=== PATIENT | female | born 1970 | race Caucasian/White ===

== ENCOUNTER 2020-09-26 08:37 | Outpatient (REF) | payer BC, SELFPAY | END 2020-09-26 08:38 | disposition home or self-care (01) | LOC: HO.LAB 08:37 | PROVIDERS: Visit Provider Internal Medicine | DX: Z20.828 Contact with and (suspected) exposure to other viral communicable diseases (principal) | CPT/HCPCS: C9803; U0003 ==

== ENCOUNTER 2020-10-10 09:01 | Outpatient (REF) | payer BC, SELFPAY | END 2020-10-10 09:02 | disposition home or self-care (01) | LOC: HO.LAB 09:01 | PROVIDERS: PCP Internal Medicine; Visit Provider Internal Medicine | DX: Z20.828 Contact with and (suspected) exposure to other viral communicable diseases (principal) | CPT/HCPCS: C9803; U0003 ==

== ENCOUNTER 2021-12-15 15:15 | Outpatient (REF) | payer OTHER, SELFPAY ==
[2021-12-15 16:34] LABS: MANUAL DIFF FLAG NO
[2021-12-15 17:04] LABS: Basophils Absolute Auto 0.1 X10*3/uL (0.0-0.2); Basophils Percent Auto 0.8 % (0-2); Eosinophils Absolute Auto 0.3 X10*3/uL (0.0-0.4); Eosinophils Percent Auto 4.1 % (0-4); Hematocrit 40.9 % (37.0-47.0); Hemoglobin 13.7 g/dl (12.0-16.0); Imm Gran Abs Auto 0.01 X10*3/uL (0.00-0.03); Imm Gran Pct Auto 0.2 % (0.0-0.4); Lymphocytes Absolute Auto 1.6 X10*3/uL (1.2-4.9); Lymphocytes Percent Auto 25.8 % (20-40); Mean Corpuscular HGB Conc 33.5 g/dl (31.0-35.0); Mean Corpuscular Volume 95.6 fL (80.0-98.0); Mean Platelet Volume 9.3 fL (9.4-12.3); Monocytes Percent Auto 15.1 % (2-11); Neutrophils Absolute Auto 3.4 x10*3/uL (2.0-8.3); Platelet Count 319 X10*3/uL (160-400); Red Blood Count 4.28 X10*6/uL (4.20-5.50); Red Cell Distribution Width 12.5 % (11.0-16.0); White Blood Count 6.3 X10*3/uL (4.8-10.8)
[2021-12-15 17:25] LABS: Alanine Aminotransferase 36 U/L (0-31); Albumin Level 4.3 g/dL (3.5-5.0); Alkaline Phosphatase 60 U/L (39-117); Anion Gap 13 (12-20); Aspartate Amino Transferase 23 U/L (5-31); Blood Urea Nitrogen 11 mg/dL (9-16); C Reactive Protein 6.96 mg/dL (< or = 0.50); Carbon Dioxide 26 mmol/L (22-29); Chloride 104 mmol/L (96-108); Estimated Glomerular Filt Rate > 60; Glucose Random 105 mg/dL (60-115); Sodium 139 mmol/L (135-145); Total Protein 7.3 g/dL (6.5-8.0)
== END 2021-12-15 15:16 | disposition home or self-care (01) ==
LOC: HO.LAB 15:15
PROVIDERS: PCP Internal Medicine; Referring Provider Internal Medicine; Visit Provider Nurse Practitioner
DX: R19.7 Diarrhea, unspecified (principal); Z86.19 Personal history of other infectious and parasitic diseases
CPT/HCPCS: 36415; 80053; 85025; 86140

== ENCOUNTER 2021-12-16 14:10 | Outpatient (REF) | payer OTHER, SELFPAY ==
[2021-12-17 11:05] LABS: CDiff Gene PCR POSITIVE (Negative)
[2021-12-17 12:13] LABS: CDiff Toxin Positive (Negative)
[2021-12-17 12:39] LABS: CDIFF Internal ctrl Dots and bkg OK (V)
== END 2021-12-16 14:11 | disposition home or self-care (01) ==
LOC: HO.LNP 14:10
PROVIDERS: Visit Provider Nurse Practitioner
DX: R19.7 Diarrhea, unspecified (principal); Z86.19 Personal history of other infectious and parasitic diseases
CPT/HCPCS: 87324; 87493

== ENCOUNTER → 2022-01-01 07:09 | Outpatient (BNVA) | payer OTHER, SELFPAY | PROVIDERS: PCP Internal Medicine; Referring Provider Internal Medicine; Visit Provider Nurse Practitioner ==

== ENCOUNTER → 2022-04-02 07:18 | Outpatient (BNVA) | payer OTHER, SELFPAY | PROVIDERS: PCP Internal Medicine; Referring Provider Internal Medicine; Visit Provider Nurse Practitioner | DX: Z13.89 Encounter for screening for other disorder (principal) ==

== ENCOUNTER 2022-06-22 08:43 | Outpatient (REF) | payer OTHER, SELFPAY ==
[2022-06-22 12:15] LABS: Alanine Aminotransferase 17 U/L (0-31); Aspartate Amino Transferase 21 U/L (5-31); Cholesterol 204 mg/dL; Glucose Fasting 101 mg/dL (60-99); HDL Cholesterol 59 mg/dL; LDL Cholesterol Calculated 121 mg/dl; Triglycerides 122 mg/dL
== END 2022-06-22 08:44 | disposition home or self-care (01) ==
LOC: HO.HMGCLDS 08:43
PROVIDERS: PCP Internal Medicine; Visit Provider Internal Medicine
DX: Z00.01 Encounter for general adult medical examination with abnormal findings (principal)
CPT/HCPCS: 36415; 80061; 82947; 84450; 84460

== ENCOUNTER 2022-12-03 13:51 | Outpatient (REF) | payer OTHER, SELFPAY ==
[2022-12-03 15:36] LABS: C Reactive Protein 0.11 mg/dL (< or = 0.50)
== END 2022-12-03 13:52 | disposition home or self-care (01) ==
LOC: HO.LAB 13:51
PROVIDERS: PCP Internal Medicine; Visit Provider Nurse Practitioner
DX: R19.7 Diarrhea, unspecified (principal); Z86.19 Personal history of other infectious and parasitic diseases
CPT/HCPCS: 36415; 86140

== ENCOUNTER 2022-12-06 10:36 | Outpatient (REF) | payer OTHER, SELFPAY | END 2022-12-06 10:37 | disposition home or self-care (01) | LOC: HO.LNP 10:36 | PROVIDERS: Visit Provider Nurse Practitioner | DX: Z13.89 Encounter for screening for other disorder (principal) | CPT/HCPCS: 87493; 87507 ==

== ENCOUNTER 2022-12-11 10:34 | Outpatient (REF) | payer OTHER, SELFPAY ==
[2022-12-11 14:23] LABS: Adenovirus F 40/41 Not Detected (Not Detect.); Astrovirus Not Detected (Not Detect.); Campylobacter Not Detected (Not Detect.); Cryptosporidium Not Detected (Not Detect.); Cyclospora cayetanensis Not Detected (Not Detect.); E. coli EAEC Not Detected (Not Detect.); E. coli EPEC Not Detected (Not Detect.); E. coli ETEC Not Detected (Not Detect.); E. coli STEC Not Detected (Not Detect.); Entamoeba histolytica Not Detected (Not Detect.); Giardia lamblia Not Detected (Not Detect.); Norovirus GI/GII Not Detected (Not Detect.); Plesiomonas shigelloides Not Detected (Not Detect.); Rotavirus A Not Detected (Not Detect.); Salmonella Not Detected (Not Detect.); Sapovirus Not Detected (Not Detect.); Shigella sp./EIEC Not Detected (Not Detect.); Vibrio Not Detected (Not Detect.); Vibrio Cholerae Not Detected (Not Detect.); Yersinia enterocolitica Not Detected (Not Detect.)
== END 2022-12-11 10:35 | disposition home or self-care (01) ==
LOC: HO.LNP 10:34
PROVIDERS: Visit Provider Nurse Practitioner
DX: R19.7 Diarrhea, unspecified (principal)
CPT/HCPCS: 87507

== ENCOUNTER 2022-12-29 08:37 | Emergency (ER) | payer OTHER, SELFPAY ==
--- NOTE | ~2022-12-29 | CT_ITS ---
EXAMINATION: CT ABDOMEN AND PELVIS WITH CONTRAST CLINICAL INFORMATION: Lower abdominal pain COMPARISON: None TECHNIQUE: Multidetector volumetric images were obtained from the superior aspect of the liver through the pubic symphysis following administration 85 mL of Omnipaque 350 intravenous contrast. Sagittal and coronal reformatted images were obtained on the technologist's workstation. Oral contrast: No This CT examination was performed using dose optimization techniques as appropriate, variously including the following: *Automated exposure control *Adjustment of mA and/or kV according to patient size (this includes techniques or standardized protocols for targeted exams where dose is matched to indication/reason for exam; i.e. extremities or head) *Use of iterative reconstruction technique DLP: 364 mGy-cm FINDINGS: LUNG BASES: 3 mm nodule at the left lung base anterior. Image 1 Another small 3 mm nodule on image 4. 3 mm nodule right base image 6. LIVER, GALLBLADDER, AND BILIARY TREE: The liver is normal in size, shape, and attenuation. No focal hepatic lesion or biliary ductal dilatation is present. The gallbladder is unremarkable with no evidence of radiopaque gallstones, gallbladder wall thickening, or obvious pericholecystic inflammatory changes. PANCREAS: Unremarkable. SPLEEN: Unremarkable. ADRENAL GLANDS: Unremarkable. KIDNEYS AND URETERS: The kidneys are normal in size, shape, and attenuation. No hydronephrosis, hydroureter, or calculi seen. No perinephric stranding. BLADDER: Unremarkable. GASTROINTESTINAL TRACT: The bowel pattern is felt to be nonobstructing. ABDOMINAL WALL: No significant hernia is appreciated. LYMPH NODES: Normal. VASCULAR: Unremarkable. PELVIC VISCERA: Small amount of free fluid in the deep pelvis. IUD associated with the uterus is noted Mild thickening of the bladder wall. OSSEOUS STRUCTURES: Unremarkable. CT/CT abdomen pelvis w IV con IMPRESSION: There is a small amount of free fluid in the deep pelvis of uncertain etiology. The bowel pattern is felt to be nonobstructing. Note is made of several small lower lung nodules. CT of the chest would be recommended. This may be done an outpatient basis. Fleischner guidelines were followed.
[2022-12-29 08:44] VITALS: BP 132/75; PULSE 61; RESP 16; TEMP 37.1; O2SAT 96; BMI 25.0
[2022-12-29 09:20] LABS: MANUAL DIFF FLAG NO
[2022-12-29 09:22] LABS: Basophils Absolute Auto 0.1 X10*3/uL (0.0-0.2); Basophils Percent Auto 1.1 % (0-2); Eosinophils Absolute Auto 0.2 X10*3/uL (0.0-0.4); Eosinophils Percent Auto 2.8 % (0-4); Hematocrit 38.9 % (37.0-47.0); Hemoglobin 13.2 g/dl (12.0-16.0); Imm Gran Abs Auto 0.02 X10*3/uL (0.00-0.03); Imm Gran Pct Auto 0.3 % (0.0-0.4); Lymphocytes Absolute Auto 1.8 X10*3/uL (1.2-4.9); Lymphocytes Percent Auto 28.1 % (20-40); Mean Corpuscular HGB Conc 33.9 g/dl (31.0-35.0); Mean Corpuscular Hemoglobin 31.8 pg (27.0-33.0); Mean Corpuscular Volume 93.7 fL (80.0-98.0); Mean Platelet Volume 8.9 fL (9.4-12.3); Monocytes Absolute Auto 0.7 X10*3/uL (0.1-1.2); Monocytes Percent Auto 11.3 % (2-11); Neutrophils Absolute Auto 3.7 x10*3/uL (2.0-8.3); Neutrophils Percent Auto 56.4 % (45-73); Platelet Count 310 X10*3/uL (160-400); Red Blood Count 4.15 X10*6/uL (4.20-5.50); Red Cell Distribution Width 12.2 % (11.0-16.0); White Blood Count 6.5 X10*3/uL (4.8-10.8)
[2022-12-29 09:44] LABS: Alanine Aminotransferase 25 U/L (0-31); Albumin Level 4.1 g/dL (3.5-5.0); Alkaline Phosphatase 55 U/L (39-117); Anion Gap 12 (12-20); Aspartate Amino Transferase 20 U/L (5-31); Bilirubin Total 1.1 mg/dL (0.0-1.0); Blood Urea Nitrogen 10 mg/dL (9-16); Calcium 9.6 mg/dL (8.4-10.2); Carbon Dioxide 28 mmol/L (22-29); Chloride 105 mmol/L (96-108); Creatinine Clr Calc Pharmacy 61.7; Estimated Glomerular Filt Rate > 60; Glucose Random 102 mg/dL (60-115); Potassium 4.8 mmol/L (3.3-5.1); Sodium 140 mmol/L (135-145); Total Protein 6.9 g/dL (6.5-8.0)
--- NOTE | 2022-12-29 15:59 | ED.GENADULT ---
HPI - General Adult General Chief complaint: General Medical <Kris Green MD - Last Filed: 12/29/22 16:26> Stated complaint: Blood in stool/Syncope <Kris Green MD - Last Filed: 12/29/22 16:26> Time Seen by Provider: 12/29/22 15:05 <Kris Green MD - Last Filed: 12/29/22 16:26> Source: patient <Kris Green MD - Last Filed: 12/29/22 16:26> History of Present Illness HPI narrative: Patient with past history of C diff colitis presents with worsening mucousy stools, low abdominal cramping and now bright red blood mixed in with mucus. She had a syncopal episode yesterday while having a bowel movement. She states this has happened to her before when she has had particularly crampy abdominal pain. No history that she knows of of cardiac dysrhythmia or other cause for her syncope in the past. Denies palpitations or dyspnea. 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 She had another stool panel which was apparently negative at the time. It appears that sample was form so may not have performed all of the C diff testing however. Since that time it has been more loose and mucousy. No fevers or chills. No nausea vomiting. She has so far not had a colonoscopy or CT scan. She is as far she knows not had a workup for inflammatory bowel disease. Her initial bout of C diff colitis was diagnosed with a stool sample after refractory diarrhea. She had never been on antibiotics prior to this however. She had a course of vancomycin with the parents some improvement but never full recovery. <Kris Green MD - Last Filed: 12/29/22 16:26> Related Data Home medications: Home Medications Medication Instructions Recorded Confirmed trazodone 100 mg tablet 100 mg PO BEDTIME 12/03/22 Previous Rx's Medication Instructions Recorded rejagnatjm-gskpdxzbfirlo-wjboenof 1 cap PO . 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 #4 tabs atenolol 50 mg tablet 50 mg PO DAILY #90 tabs 12/20/22 citalopram 20 mg tablet 20 mg PO DAILY #90 tabs 12/20/22 <Kris Green MD - Last Filed: 12/29/22 16:26> Allergies/adverse reactions: Allergies Allergy/AdvReac Type Severity Reaction Status Date / Time codeine [CODEINE] Allergy Unknown RASH Verified 12/29/22 08:44 oxycodone [Percocet] Allergy Unknown rash Verified 12/29/22 08:44 <Kris Green MD - Last Filed: 12/29/22 16:26> Review of Systems Constitutional: Comments: Malaise but no fevers or chills <Kris Green MD - Last Filed: 12/29/22 16:26> Cardiovascular: Comments: No chest pain <Kris Green MD - Last Filed: 12/29/22 16:26> Respiratory: Comments: No cough or dyspnea <Kris Green MD - Last Filed: 12/29/22 16:26> Gastrointestinal: Gastrointestinal: Reports as per HPI <Kris Green MD - Last Filed: 12/29/22 16:26> Musculoskeletal: Musculoskeletal: Reports no additional musculoskeletal complaints <Kris Green MD - Last Filed: 12/29/22 16:26> Integumentary/Breasts: Comments: No rash <Kris Green MD - Last Filed: 12/29/22 16:26> Neurologic: Comments: No focal weakness <Kris Green MD - Last Filed: 12/29/22 16:26> [facility] Past Medical History Medical History: Medical History (Updated 12/29/22 @ 18:47 by Viky Cool MD) Anxiety and depression Colon cancer screening 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 COVID-19 vaccine series declined Essential hypertension History of Clostridioides difficile colitis Impaired fasting glucose Migraine headache Peroneal tendinitis Plantar fasciitis, left <Kris Green MD - Last Filed: 12/29/22 16:26> Family History Family History: Family History Father Substance use disorder Sister Mental health disorder <Kris Green MD - Last Filed: 12/29/22 16:26> Social History Social History: Social History Housing: House Alcohol intake: current Alcohol intake frequency: holidays/special occasions only Alcohol type: beer and wine Patient Tobacco Use Status: Former Tobacco user Years Smoked: 6 yrs Smoked in Last 30 Days: No e-Cigarette/Vaping Use: Never Used Second Hand Smoke Exposure: No Use of substances other than those prescribed or required for medical reasons: Yes Substance Use Type: Marijuana Advance Directives: No Advance Directives Information Provided: No Patient : No service: No Current occupational status: employed Cognitive needs: No Hearing needs: No Vision needs: No <Kris Green MD - Last Filed: 12/29/22 16:26> Physical Exam ED Vital Signs: Vital Signs - 24 hr 12/29/22 08:44 12/29/22 16:51 12/29/22 18:26 Temperature 98.7 F 98.8 F 98.1 F Pulse Rate 61 59 59 Respiratory Rate 16 16 14 Blood Pressure 132/75 142/73 H 152/96 H Pulse Oximetry 96 100 98 Oxygen Delivery Method Room Air Room Air Room Air BMI result Body Mass Index 25.0 <Kris Green MD - Last Filed: 12/29/22 16:26> Vital Signs - 24 hr 12/29/22 08:44 12/29/22 16:51 12/29/22 18:26 Temperature 98.7 F 98.8 F 98.1 F Pulse Rate 61 59 59 Respiratory Rate 16 16 14 Blood Pressure 132/75 142/73 H 152/96 H Pulse Oximetry 96 100 98 Oxygen Delivery Method Room Air Room Air Room Air BMI result Body Mass Index 25.0 <Viky Cool MD - Last Filed: 12/29/22 18:48> Const Other: Awake alert and oriented. No acute distress. Vital signs stable <Kris Green MD - Last Filed: 12/29/22 16:26> Resp Other: Clear and equal bilaterally without wheezes rales or rhonchi <Kris Green MD - Last Filed: 12/29/22 16:26> Cardio Other: Regular rate and rhythm without murmurs rubs or gallops <Kris Green MD - Last Filed: 12/29/22 16:26> GI Other: Soft. Nondistended. Mild tenderness across the low abdomen without guarding rebound <Kris Green MD - Last Filed: 12/29/22 16:26> Skin Other: Warm pink and dry <Kris Green MD - Last Filed: 12/29/22 16:26> Neuro Other: Nonfocal neuro exam <Kris Green MD - Last Filed: 12/29/22 16:26> Medications Administered Discontinued Medications Generic Name Dose Route Start Last Admin Trade Name Freq PRN Reason Stop Dose Admin Acetaminophen 650 mg 12/29/22 15:37 12/29/22 16:38 Acetaminophen 325 Mg Tablet PO 12/29/22 15:38 650 mg ONCE ONE Administration Sodium Chloride 1,000 mls @ 999 mls/hr 12/29/22 15:45 12/29/22 16:39 Ns IV 12/29/22 16:45 999 mls/hr .Q1H1M CRISTOBAL Administration Iohexol 100 ml 12/29/22 16:23 12/29/22 16:24 Iohexol 350 Mg/Ml 100 Ml Infus..Btl IV 12/29/22 16:24 85 ml ONCE ONE Administration <Kris Green MD - Last Filed: 12/29/22 16:26> Medications Administered Discontinued Medications Generic Name Dose Route Start Last Admin Trade Name Freq PRN Reason Stop Dose Admin Acetaminophen 650 mg 12/29/22 15:37 12/29/22 16:38 Acetaminophen 325 Mg Tablet PO 12/29/22 15:38 650 mg ONCE ONE Administration Sodium Chloride 1,000 mls @ 999 mls/hr 12/29/22 15:45 12/29/22 16:39 Ns IV 12/29/22 16:45 999 mls/hr .Q1H1M CRISTOBAL Administration Iohexol 100 ml 12/29/22 16:23 12/29/22 16:24 Iohexol 350 Mg/Ml 100 Ml Infus..Btl IV 12/29/22 16:24 85 ml ONCE ONE Administration <Viky Cool MD - Last Filed: 12/29/22 18:48> Medical Decision Making Medical Decision Making MDM Narrative: Patient with chronic intermittently waxing and waning colitis type picture with mucus and occasional bright red blood. Unclear if this is related to recurrence of C diff or if she has another pathologic process such as inflammatory bowel disease, ulcerative colitis, Crohn's. She also has a history of syncope with a recent episode. These appear and we are always in the setting of crampy abdominal pain and most likely vasovagal. Will act CT scan. Anemia could be contributing Hypokalemia could be contributing White count and hemoglobin are normal. Chemistries are normal. Will order C diff if she can produce a sample. Given above history, will order CT scan to look for inflammatory changes or signs of infectious colitis. <Kris Green MD - Last Filed: 12/29/22 16:26> Patient with chronic intermittently waxing and waning colitis type picture with mucus and occasional bright red blood. Unclear if this is related to recurrence of C diff or if she has another pathologic process such as inflammatory bowel disease, ulcerative colitis, Crohn's. She also has a history of syncope with a recent episode. These appear and we are always in the setting of crampy abdominal pain and most likely vasovagal. Will act CT scan. Anemia could be contributing Hypokalemia could be contributing White count and hemoglobin are normal. Chemistries are normal. Will order C diff if she can produce a sample. Given above history, will order CT scan to look for inflammatory changes or signs of infectious colitis. Took over patient's case at the change of shift. Patient's white count is normal. Hemoglobin is baseline. Electrolytes unremarkable. CT scan of the abdomen pelvis did not show any acute abscess perforation. It did show some pulmonary nodules will do require follow-up on an outpatient basis. These findings were discussed with GI on-call Dr. Burgos. Agreed no additional antibiotic at this time. Close follow-up with GI on an outpatient basis. Patient is in stable condition. <Viky Cool MD - Last Filed: 12/29/22 18:48> Differential Diagnosis Differential Diagnoses: The differential diagnosis associated with the presentation includes <Viky Cool MD - Last Filed: 12/29/22 18:48> Colitis, C diff, inflammatory bowel disease, irritable bowel disease, pulmonary nodules <Viky Cool MD - Last Filed: 12/29/22 18:48> Admission/Observation Consideration of admission/observation: Escalation of care including admission/observation considered <Viky Cool MD - Last Filed: 12/29/22 18:48> Given patient's well appearance has follow-up with GI will require follow-up on an outpatient basis. Joint decision was made with patient and with GI to discharge patient home <Viky Cool MD - Last Filed: 12/29/22 18:48> Consult Healthcare Provider GI <Viky Cool MD - Last Filed: 12/29/22 18:48> Lab Data MDM Lab Attestation statement: I reviewed the patient's lab results. <Viky Cool MD - Last Filed: 12/29/22 18:48> Result Diagrams: 12/29/22 09:16 12/29/22 09:16 <Kris Green MD - Last Filed: 12/29/22 16:26> Labs: Lab Results 12/29/22 12/29/22 12/29/22 Range/Units 09:16 09:16 16:43 WBC 6.5 (4.8-10.8) X10*3/uL RBC 4.15 L (4.20-5.50) X10*6/uL Hgb 13.2 (12.0-16.0) g/dl Hct 38.9 (37.0-47.0) % MCV 93.7 (80.0-98.0) fL MCH 31.8 (27.0-33.0) pg MCHC 33.9 (31.0-35.0) g/dl RDW 12.2 (11.0-16.0) % Plt Count 310 (160-400) X10*3/uL MPV 8.9 L (9.4-12.3) fL Immature Gran % (Auto) 0.3 (0.0-0.4) % Neut % (Auto) 56.4 (45-73) % Lymph % (Auto) 28.1 (20-40) % Archer % (Auto) 11.3 H (2-11) % Eos % (Auto) 2.8 (0-4) % Baso % (Auto) 1.1 (0-2) % Lymph # (Auto) 1.8 (1.2-4.9) X10*3/uL Archer # (Auto) 0.7 (0.1-1.2) X10*3/uL Eos # (Auto) 0.2 (0.0-0.4) X10*3/uL Baso # (Auto) 0.1 (0.0-0.2) X10*3/uL Abs Immat Gran (auto) 0.02 (0.00-0.03) X10*3/uL Absolute Neuts (auto) 3.7 (2.0-8.3) x10*3/uL Absolute Nucleated RBC 0.000 (0.0-0.012) X10*3/uL Nucleated RBC % (auto) 0.0 (0.0-0.2) /100WBC Sodium 140 (135-145) mmol/L Potassium 4.8 (3.3-5.1) mmol/L Chloride 105 (96-108) mmol/L Carbon Dioxide 28 (22-29) mmol/L Anion Gap 12 (12-20) BUN 10 (9-16) mg/dL Creatinine 0.85 (0.5-1.4) mg/dL Estim Creat Clear Calc 61.7 Estimated GFR > 60 Random Glucose 102 (60-115) mg/dL Calcium 9.6 (8.4-10.2) mg/dL Total Bilirubin 1.1 H (0.0-1.0) mg/dL AST 20 (5-31) U/L ALT 25 (0-31) U/L Alkaline Phosphatase 55 (39-117) U/L Total Protein 6.9 (6.5-8.0) g/dL Albumin 4.1 (3.5-5.0) g/dL Urine Color Yellow Urine Appearance Clear Urine pH 6.0 (5.0-9.0) Ur Specific [place] 1.010 (1.005-1.025) Urine Protein Negative (Neg-Trace) mg/dL Urine Glucose (UA) Negative (Negative) mg/dL Urine Ketones Trace (Negative) mg/dL Urine Blood Negative (Negative) Urine Nitrite Negative (Negative) Ur Leukocyte Esterase Trace H (Negative) Urine RBC 0-2 (0-2) /HPF Urine WBC 0-5 (0-5) /HPF Ur Squamous Epith Cells 3-5 (0-2) /HPF Urine Bacteria 1+ (None Seen) Hyaline Casts 0-2 (0-2) /LPF <Kris Green MD - Last Filed: 12/29/22 16:26> Lab Results 12/29/22 12/29/22 12/29/22 Range/Units 09:16 09:16 16:43 WBC 6.5 (4.8-10.8) X10*3/uL RBC 4.15 L (4.20-5.50) X10*6/uL Hgb 13.2 (12.0-16.0) g/dl Hct 38.9 (37.0-47.0) % MCV 93.7 (80.0-98.0) fL MCH 31.8 (27.0-33.0) pg MCHC 33.9 (31.0-35.0) g/dl RDW 12.2 (11.0-16.0) % Plt Count 310 (160-400) X10*3/uL MPV 8.9 L (9.4-12.3) fL Immature Gran % (Auto) 0.3 (0.0-0.4) % Neut % (Auto) 56.4 (45-73) % Lymph % (Auto) 28.1 (20-40) % Archer % (Auto) 11.3 H (2-11) % Eos % (Auto) 2.8 (0-4) % Baso % (Auto) 1.1 (0-2) % Lymph # (Auto) 1.8 (1.2-4.9) X10*3/uL Archer # (Auto) 0.7 (0.1-1.2) X10*3/uL Eos # (Auto) 0.2 (0.0-0.4) X10*3/uL Baso # (Auto) 0.1 (0.0-0.2) X10*3/uL Abs Immat Gran (auto) 0.02 (0.00-0.03) X10*3/uL Absolute Neuts (auto) 3.7 (2.0-8.3) x10*3/uL Absolute Nucleated RBC 0.000 (0.0-0.012) X10*3/uL Nucleated RBC % (auto) 0.0 (0.0-0.2) /100WBC Sodium 140 (135-145) mmol/L Potassium 4.8 (3.3-5.1) mmol/L Chloride 105 (96-108) mmol/L Carbon Dioxide 28 (22-29) mmol/L Anion Gap 12 (12-20) BUN 10 (9-16) mg/dL Creatinine 0.85 (0.5-1.4) mg/dL Estim Creat Clear Calc 61.7 Estimated GFR > 60 Random Glucose 102 (60-115) mg/dL Calcium 9.6 (8.4-10.2) mg/dL Total Bilirubin 1.1 H (0.0-1.0) mg/dL AST 20 (5-31) U/L ALT 25 (0-31) U/L Alkaline Phosphatase 55 (39-117) U/L Total Protein 6.9 (6.5-8.0) g/dL Albumin 4.1 (3.5-5.0) g/dL Urine Color Yellow Urine Appearance Clear Urine pH 6.0 (5.0-9.0) Ur Specific [place] 1.010 (1.005-1.025) Urine Protein Negative (Neg-Trace) mg/dL Urine Glucose (UA) Negative (Negative) mg/dL Urine Ketones Trace (Negative) mg/dL Urine Blood Negative (Negative) Urine Nitrite Negative (Negative) Ur Leukocyte Esterase Trace H (Negative) Urine RBC 0-2 (0-2) /HPF Urine WBC 0-5 (0-5) /HPF Ur Squamous Epith Cells 3-5 (0-2) /HPF Urine Bacteria 1+ (None Seen) Hyaline Casts 0-2 (0-2) /LPF <Viky Cool MD - Last Filed: 12/29/22 18:48> External Record Review External record reviewed: Inpatient record and Office record <Viky Cool MD - Last Filed: 12/29/22 18:48> Discharge Plan Discharge Clinical Impression: Colitis <Kris Green MD - Last Filed: 12/29/22 16:26> Patient Disposition: Home, Self-Care <Kris Green MD - Last Filed: 12/29/22 16:26> Instructions: Colitis (ED) <Kris Green MD - Last Filed: 12/29/22 16:26> Additional Instructions: Pulmonary nodule was noted on your CT scan. Please closely follow-up with your doctor on an outpatient basis. <Kris Green MD - Last Filed: 12/29/22 16:26> Prescriptions: No Action juthspogrp-jsoevtzhipegj-mtij 50-325-40 mg capsule 1 cap PO . every 12 hours PRN (Reason: headache) Qty: 10 0RF lorazepam 1 mg tablet 1 mg PO DAILY PRN (Reason: anxiety) Qty: 20 0RF aripiprazole [Abilify] 2 mg tablet 2 mg PO DAILY Qty: 30 0RF valacyclovir 1 gram tablet 2,000 mg PO Q12H PRN (Reason: recurrent cold sores) Qty: 4 5RF atenolol 50 mg tablet 50 mg PO DAILY Qty: 90 1RF citalopram 20 mg tablet 20 mg PO DAILY Qty: 90 1RF trazodone 100 mg tablet 100 mg PO BEDTIME <Kris Green MD - Last Filed: 12/29/22 16:26> Referrals: Mali Malone, VANESSA-C [Nurse Practitioner] - 12/30/22 <Kris Green MD - Last Filed: 12/29/22 16:26>
[2022-12-29] MEDS: iohexoL 350 MG/ML 100 ML INFUS..BTL IV (16:24)
--- NOTE | 2022-12-29 16:27 | ECG_ITS ---
Test Reason : ABD PAIN Blood Pressure : / mmHG Vent. Rate : 066 BPM Atrial Rate : 066 BPM P-R Int : 170 ms QRS Dur : 094 ms QT Int : 414 ms P-R-T Axes : 062 024 044 degrees QTc Int : 434 ms Normal sinus rhythm Normal ECG No previous ECGs available Referred By: Kris Green Electronically Signed By:MONICO FUENTES MD
[2022-12-29] MEDS: Acetaminophen 325 MG TABLET 650 MG PO (16:38)
[2022-12-29] MEDS: 0.9 % Sodium Chloride 1,000 ML 999 ML IV (16:39)
[2022-12-29 16:51] VITALS: BP 142/73; PULSE 59; RESP 16; TEMP 37.1; O2SAT 100
--- NOTE | 2022-12-29 16:53 | PC.NURSE ---
pt a&ox3, vss, medicated per provider order, 1L NS running, 20G IV in right AC, pt pending CT results, reporting 4/10 abd pain. EKG pending.
[2022-12-29 16:56] LABS: Appearance Urine Clear; Color Urine Yellow; Glucose Urine UA Negative (Negative); Leukocyte Esterase Urine Trace (Negative); Nitrite Urine Negative (Negative); UMIC TRIGGER UACC YES; Urine Blood Negative (Negative); Urine Ketones Trace mg/dL (Negative); Urine Protein Negative (Neg-Trace)
[2022-12-29 17:01] LABS: Bacteria Urine 1+ (None Seen); Hyaline Casts Urine 0-2 /LPF (0-2); RBC Urine 0-2 /HPF (0-2); WBC Urine 0-5 /HPF (0-5)
[2022-12-29 18:26] VITALS: BP 152/96; PULSE 59; RESP 14; TEMP 36.7; O2SAT 98
== END 2022-12-29 19:04 | disposition home or self-care (01) ==
PROVIDERS: Emergency Medicine; Emergency Provider Emergency Medicine Emergency Medical Services; PCP Internal Medicine
DX: K52.9 Noninfective gastroenteritis and colitis, unspecified (principal); R91.1 Solitary pulmonary nodule; I10 Essential (primary) hypertension; Z87.891 Personal history of nicotine dependence; Z86.19 Personal history of other infectious and parasitic diseases
CPT/HCPCS: 36415; 74177; 80053; 81001; 85025; 93005; 96360; 96361; 99284; 99285; Q9967

== ENCOUNTER 2022-12-31 08:41 | Outpatient (REF) | payer OTHER, SELFPAY ==
[2022-12-31 11:45] LABS: C Reactive Protein 0.43 mg/dL (< or = 0.50); Lipase 51 U/L (8-78)
[2022-12-31 12:08] LABS: Folate 11.5 ng/mL (> or = 4.0); Vitamin B12 508 pg/mL (200-900)
[2023-01-08 14:18] LABS: Vitamin D 25-OH, D2 <4 ng/mL; Vitamin D 25-OH, D3 21 ng/mL; Vitamin D 25-OH, Total 21 ng/mL (30-100)
== END 2022-12-31 08:42 | disposition home or self-care (01) ==
LOC: HO.LAB 08:41
PROVIDERS: PCP Internal Medicine; Visit Provider Nurse Practitioner Family
DX: E55.9 Vitamin D deficiency, unspecified (principal); R10.9 Unspecified abdominal pain; R39.82 Chronic bladder pain; K58.0 Irritable bowel syndrome with diarrhea
CPT/HCPCS: 36415; 82306; 82607; 82746; 83690; 86140

== ENCOUNTER 2023-01-03 11:33 | Day surgery (SDC) | payer OTHER, SELFPAY ==
[2023-01-03 13:35] VITALS: BMI 24.4
--- NOTE | 2023-01-03 13:41 | HO.ANESPROP2 ---
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 COVID-19 vaccine series declined Essential hypertension History of Clostridioides difficile colitis Impaired fasting glucose Migraine headache Peroneal tendinitis Plantar fasciitis, left Family History Family History Father Substance use disorder Sister Mental health disorder Family history of problems with anesthesia: No Surgical History History of Problems with Anesthesia: No Social History Social History Housing: House Alcohol intake: current Alcohol intake frequency: holidays/special occasions only Alcohol type: beer and wine Patient Tobacco Use Status: Former Tobacco user Years Smoked: 6 yrs e-Cigarette/Vaping Use: Never Used Second Hand Smoke Exposure: No Substance Use Type: Marijuana Substance Use Type Other:: smoked Substance Use Frequency: Weekly Are you DNR?: No Advance Directives: No Advance Directives Information Provided: Yes service: No Current occupational status: employed Cognitive needs: No Hearing needs: No Vision needs: No Meds Allergies Allergy/AdvReac Type Severity Reaction Status Date / Time codeine [CODEINE] Allergy Unknown RASH Verified 12/31/22 08:57 oxycodone [Percocet] Allergy Unknown rash Verified 12/31/22 08:57 Exam Exam Date and Time: January 03, 2023 1341 Height,Weight and Vital Signs: Height 5 ft Weight 56.699 kg Airway Mallampati Class: II TM Dist: >3cm Neck ROM: Full Heart: rrr Lungs: cta Assessment and Plan Assessment Anesthesia Assessment: Anesthesia Plan Discussed and Chart Reviewed Final Anesthetic Review Family History of Problems with Anesthesia: No History of Problems with Anesthesia: No NPO: Yes ASA Class: II Final Preanesthetic Review: No Changes in Pt Med Stat, Meds/Allgs Chart Reviewed and Consent Obtained/Reviewed Patient Risk: Intermediate Procedure Risk: Intermediate Anesthetic Plan Anesthetic Plan: MAC: Disposition: Standard PACU
--- NOTE | 2023-01-03 13:52 | MHC.SHP ---
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 COVID-19 vaccine series declined Essential hypertension History of Clostridioides difficile colitis Impaired fasting glucose Migraine headache Peroneal tendinitis Plantar fasciitis, left) History of Previous Operations: No relevant previous surgery Allergies: Allergies Allergy/AdvReac Type Severity Reaction Status Date / Time codeine [CODEINE] Allergy Unknown RASH Verified 12/31/22 08:57 oxycodone [Percocet] Allergy Unknown rash Verified 12/31/22 08:57 Review of Systems Sugical H&P ROS: Negative: Constitution, Cardiovascular and Respiratory and Yes, Specify: Gastrointestinal (diarrhea) Exam Surgical H&P Exam: Normal: Heart, Normal: Lungs, Normal: Extremities and Normal: Abdomen Plan Diagnosis/Plan: Unchanged I have reviewed the history and physical and performed a pertinent physical examination on my patient. No changes have occurred unless specified. Time Spent With Patient Time: Total time managing care of this patient today ____ minutes.
[2023-01-03 13:54] VITALS: BP 137/78; PULSE 58; RESP 16; TEMP 36.9; O2SAT 97
[2023-01-03 15:40] VITALS: BP 113/70; PULSE 64; RESP 16; TEMP 36.4; O2SAT 99
--- NOTE | 2023-01-03 15:47 | PM.OP ---
Brief Operative Note Date of Service: 01/03/23 Pre-op diagnosis: Colon cancer screening, chronic diarrhea, Recurrent C Diff (2nd episode) Post-op diagnosis: other (diverticulosis, left sided colitis, hemorrhoids) Procedure: COLONOSCOPY TILL CECUM WITH BIOPSIES Surgeon: Kevin Barbour MD Anesthesia: MAC Was an Grooming Salon Manager used for this Procedure?: Yes Grooming Salon Manager: Rolf Lott Estimated blood loss (mL): 2 Pathology: other (A. Rt colon, B. Transverse colon, C. Sigmoid colon, D. Rectum) Condition: stable Disposition: PACU
--- NOTE | 2023-01-03 15:48 | P.OP_ITS ---
Operative Note Operative Note Date of Service: 01/03/23 Narrative: COLONOSCOPY TILL CECUM WITH BIOPSIES Indication:? Colon cancer screening, chronic diarrhea - suspected C Diff Colitis Endoscopist:? Kevin Barbour MD Anesthesia type:?MAC Consent: Indications for the procedure and potential complications of bleeding, perforation, reaction to medications and missed diagnosis were discussed with the patient and informed consent was obtained. Instrument: Olympus PCF H 190 L variable stiffness pediatric colonoscope Monitoring: Vital signs and clinical assessment, intermittent blood pressure monitoring, continuous EKG monitoring, Pulse oximetry and Carbon Dioxide monitoring were done throughout the procedure. Please see anesthesia flowsheet. Colon withdrawl time was 20 minutes. Procedure: The patient was placed in the left lateral decubitis position and pre-procedure medications were administered. After a digital rectal examination of the ano-rectum, the video colonoscope was inserted into the rectum and advanced through the colon to the cecum. The colonoscope was slowly withdrawn in a retrograde panoramic fashion and the colon mucosa was carefully examined including a retroflexed view of the rectum. Findings and interventions are described below. Procedure Difficulty: Colon was long and tortuous and there was some loop formation Findings: Terminal Ileum: Not evaluated Cecum: Mild patchy erythema throughout the colon - random biopsies were obtained. Ascending Colon: Mild patchy erythema throughout the colon - random biopsies were obtained Transverse Colon: Mild patchy erythema throughout the colon - random biopsies were obtained Descending Colon: Mild patchy erythema throughout the colon - random biopsies were obtained Sigmoid Colon: Scattered superficial ulcers with yellow white exudate in the distal sigmoid colon and rectum 9from 0 to 35 cms) - multiple biopsies were obtained. Mild diverticulosis Rectum: Scattered superficial ulcers with yellow white exudate in the distal sigmoid colon and rectum - multiple biopsies were obtained. Ano-rectum: Small internal hemorrhoids Colon preparation: Good Impression and Post Procedure Diagnosis: Colonoscopy Findings: No polyps were detected Scattered superficial ulcers with yellow white exudate in the distal sigmoid colon and rectum (0 to 35 cms) - multiple biopsies were obtained. Mild diverticulosis seen in the sigmoid colon Small hemorrhoids on retroflexed exam. Plan: Await pathology results Patient has an appointment on 01/28/23 in the [facility] with Barby Ross FNP-BC. Repeat Colonoscopy interval based on path results - in 5 years if biopsies are normal. Above findings were reviewed with the patient and C Diff and diverticulosis handouts were given in the discharge area ADDENDUM: BIOPSIES SHOWED: A. Colon, right, random, biopsy:? Colonic mucosa with lymphoid aggregate and no specific change; negative for colitis, granulomas, and dysplasia.? B.? Colon, transverse, random, biopsy:? Colonic mucosa with lymphoid aggregate and no specific change; negative for colitis, granulomas, and dysplasia. C.? Colon, left, random, biopsy:? Colonic mucosa with focal mild lamina propria hemorrhage, otherwise no specific change; negative for colitis, granulomas and dysplasia.? D.? Colon, rectum, biopsy:? Focal active colitis with minor crypt distortion, and no basal lymphoplasmacytic infiltrate, pseudomembranes, granulomas, or dysplasia (see comment).? Comment: (D):? The focal active colitis pattern can be seen with diverticular disease- associated colitis, Crohn's disease, drugs, resolving infection, and bowel prep.? A pseudomembranous colitis is not identified.? Clinical and serologic correlation is necessary 01/10/23 : Pt called with biopsy results Diarrhea is better - usually has diarrhea consisting of soft stools during certain times of the day BM are mucousy - intermittent blood. Notes intermittent abdominal pain, gets the diarrhea when abd pain gets worse Has no appetite - since she knows she has to go to the bathroom Colon biopsies suggestive of left sided ulcerative colitis Patient advised to start Lialda 2.4 g daily and have follow-up labs checked in 3-4 weeks. Patient has a follow-up appointment Kellie on 01/28/23.
[2023-01-03 15:55] VITALS: BP 114/74; PULSE 98; RESP 16; TEMP 36.6; O2SAT 100
== END 2023-01-03 16:19 | disposition home or self-care (01) ==
PROVIDERS: PCP Internal Medicine; Visit Provider Internal Medicine Gastroenterology
PROC: 0DJD8ZZ Inspection of Lower Intestinal Tract, Via Natural or Artificial Opening Endoscopic (ICD-10-PCS; CPT 45378; principal; 2023-01-03 13:50)
DX: Z12.11 Encounter for screening for malignant neoplasm of colon (principal); K57.30 Diverticulosis of large intestine without perforation or abscess without bleeding; R10.9 Unspecified abdominal pain; K52.9 Noninfective gastroenteritis and colitis, unspecified; A04.71 Enterocolitis due to Clostridium difficile, recurrent; I10 Essential (primary) hypertension; R73.01 Impaired fasting glucose; R39.82 Chronic bladder pain; G43.909 Migraine, unspecified, not intractable, without status migrainosus; F41.8 Other specified anxiety disorders; Z79.899 Other long term (current) drug therapy; Z88.8 Allergy status to other drugs, medicaments and biological substances; Z87.891 Personal history of nicotine dependence
CPT/HCPCS: 45380; 88305

== ENCOUNTER 2023-01-28 15:17 | Outpatient (REF) | payer OTHER, SELFPAY ==
[2023-01-28 16:33] LABS: MANUAL DIFF FLAG NO
[2023-01-28 17:17] LABS: Basophils Absolute Auto 0.1 X10*3/uL (0.0-0.2); Basophils Percent Auto 0.9 % (0-2); Eosinophils Absolute Auto 0.4 X10*3/uL (0.0-0.4); Eosinophils Percent Auto 7.4 % (0-4); Hematocrit 37.5 % (37.0-47.0); Hemoglobin 12.7 g/dl (12.0-16.0); Imm Gran Abs Auto 0.01 X10*3/uL (0.00-0.03); Imm Gran Pct Auto 0.2 % (0.0-0.4); Lymphocytes Absolute Auto 1.6 X10*3/uL (1.2-4.9); Lymphocytes Percent Auto 30.4 % (20-40); Mean Corpuscular HGB Conc 33.9 g/dl (31.0-35.0); Mean Corpuscular Hemoglobin 31.4 pg (27.0-33.0); Mean Corpuscular Volume 92.8 fL (80.0-98.0); Mean Platelet Volume 9.3 fL (9.4-12.3); Monocytes Absolute Auto 0.7 X10*3/uL (0.1-1.2); Monocytes Percent Auto 13.5 % (2-11); Neutrophils Absolute Auto 2.6 x10*3/uL (2.0-8.3); Neutrophils Percent Auto 47.6 % (45-73); Platelet Count 302 X10*3/uL (160-400); Red Blood Count 4.04 X10*6/uL (4.20-5.50); White Blood Count 5.4 X10*3/uL (4.8-10.8)
[2023-01-28 17:46] LABS: Alanine Aminotransferase 18 U/L (0-31); Albumin Level 4.2 g/dL (3.5-5.0); Alkaline Phosphatase 56 U/L (39-117); Aspartate Amino Transferase 19 U/L (5-31); Bilirubin Direct 0.2 mg/dL (0.0-0.5); Blood Urea Nitrogen 8 mg/dL (9-16); C Reactive Protein < 0.10 mg/dL (< or = 0.50); Estimated Glomerular Filt Rate > 60; Total Protein 6.8 g/dL (6.5-8.0)
== END 2023-01-28 15:18 | disposition home or self-care (01) ==
LOC: HO.LAB 15:17
PROVIDERS: Absent Provider Internal Medicine Gastroenterology; PCP Internal Medicine; Referring Provider Internal Medicine; Visit Provider Nurse Practitioner Family
DX: K51.50 Left sided colitis without complications (principal); Z98.890 Other specified postprocedural states
CPT/HCPCS: 36415; 80076; 82565; 84520; 85025; 86140

== ENCOUNTER 2023-01-28 22:00 | Outpatient (REF) | payer OTHER, SELFPAY ==
[2023-02-04 23:34] LABS: Calprotectin, Fecal 210 mcg/g
[2023-02-07 23:53] LABS: Pancreatic Elastase-1 482 mcg/g
== END 2023-01-28 22:01 | disposition home or self-care (01) ==
LOC: HO.LNP 22:00
PROVIDERS: Visit Provider Nurse Practitioner Family
DX: K51.50 Left sided colitis without complications (principal)
CPT/HCPCS: 82656; 83993

== ENCOUNTER → 2023-06-17 15:48 | Outpatient (AMB) | payer OTHER, SELFPAY ==
[2023-06-17 15:59] VITALS: BP 155/74; PULSE 53; BMI 23.9
--- NOTE | 2023-06-17 15:59 | A.OFFVIS_ITS ---
Intake Vital Signs 06/17/23 15:59 Height 5 ft Weight 122 lb 9.232 oz BMI 23.9 BP 155/74 H Blood Pressure Location Lt brachial Position Sitting Pulse 53 Intake Visit Reasons: 4 month fu Intake Note: Binta presents in office as a est.patient for a 4month f/u for IBS. 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 Patient is taking mesalamine. Patient was encouraged to get fecal calprotectin test. Patient can start mesalam ine enema after I receive the results. Patient will drop it off tomorrow. Patient reports that her symptoms are better. Patient does admit that the symptoms got worse after she had pizza. Continue oral mesalamine. Will call patient with results and have her start mesalamine per rectum IBS (irritable bowel syndrome) Patient reports abdominal bloating and cramping. However patient also has diarrhea and was diagnosed with left sided colitis. Discussed with patient will FODMAP diet. Patient will stay away from pizza and other aggravating food. List of food recommended as well as list of food to avoid given to patient. Status post colonoscopy Patient denies any ill effects from the prep, anesthesia or procedure itself. Patient diagnosed with left-sided colitis. No polyps found. Her prep was excellent. Patient will return in 4 months for office visit, however we will discuss things over the phone as time goes by. Patient is to report her symptoms next week. She is agreeable to this plan and verbalizes understanding of instructions. She was given the opportunity to ask questions and all questions answered. ? Thank you for allowing me to participate in her care Plan Medications New mesalamine with cleansing wipe 4 gram/60 mL 4 grams (60 mL) IN BEDTIME 28 ea 0RF TODAY'S VISIT Patient here today for follow-up. Patient reports that in the last couple weeks she started again with her left lower quadrant pain. Patient states that the pain sometimes is in Heller pelvic and mid abdomen as well. Patient denies nausea or vomiting. Reports dyspepsia without dysphagia or odynophagia. Patient reports that she is moving her is bowels, however occasionally she feels like she has mucus in her stool without blood. Patient denies melena, hematochezia, unintentional weight loss or ribbon like stools. Patient reports abdominal bloating. Patient states that she is under lot of stress lately. 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 Plantar fasciitis, left Surgical History Hx of colonoscopy Family History Father Substance use disorder Sister Mental health disorder Social History Housing: House Alcohol intake: current Alcohol intake frequency: holidays/special occasions only Alcohol type: beer and wine Patient Tobacco Use Status: Former Tobacco user Years Smoked: 6 yrs e-Cigarette/Vaping Use: Never Used Second Hand Smoke Exposure: No Substance Use Type: Marijuana service: No Current occupational status: employed Cognitive needs: No Hearing needs: No Vision needs: No Review of Systems Const Denies weight gain and Denies weight loss ENT Reports no additional complaints, Denies dysphagia and Denies odynophagia Card Reports no additional complaints Resp Reports no additional complaints GI Reports abdominal pain (LLQ), Denies belching, Denies melena, Reports bloating, Denies change in bowel habits, Denies dysphagia, Denies excessive flatus, Reports dyspepsia, Denies heartburn, Denies diarrhea, Reports loose stools, Denies nausea, Denies odynophagia and Denies vomiting Reports no additional complaints Musc Reports no additional complaints Neuro Reports no additional complaints Psych Reports no additional complaints Endo Reports no additional complaints Physical Exam Vital Signs: Last Vital Signs Pulse 53 06/17/23 15:59 BP 155/74 H 06/17/23 15:59 BMI result Body Mass Index 23.9 Const General: healthy appearing, no acute distress and well developed Nutritional Appearance: well nourished Orientation/consciousness: patient oriented x3 HEENT Head: Yes normal to inspection, Yes normocephalic and Yes atraumatic Face and sinus: Yes normal facial exam Mouth: Normal oral and palatal mucosa present Throat: Yes posterior oropharynx normal, Yes tonsils normal and Yes uvula midline Eyes General: appearance normal, both eyes and all related structures Neck Neck: Yes normal visual inspection, Yes full ROM and Yes trachea midline Thyroid: Thyroid normal Resp Effort & Inspection: normal respiratory effort, able to speak in complete sentences, no tracheal deviation and symmetric chest movement Auscultation: clear to auscultation bilaterally Cardio Rate: regular rate Heart sounds: S1 normal heart sound present and S2 normal heart sound present GI Inspection: Yes normal to inspection and No distended Palpation (GI): Soft to palpation, not firm, nontender and No hepatosplenomegaly present Auscultation: normal bowel sounds General: Yes no CVA tenderness Back/Spine/Pelvis Back: no CVA tenderness Skin General skin exam: elasticity normal, turgor normal and dry skin Neuro General: patient oriented x3 Psych Appearance: grossly normal Mental Status: mental status grossly normal Speech and movement: Normal speech and movement present Judgement: Good judgement present (Psych) Assessment & Plan Assessment & Plan (1) Left sided ulcerative colitis: Code(s): K51.50 - Left sided colitis without complications Qualifiers: Digestive disease complication type: without complication Qualified Code(s): K51.50 - Left sided colitis without complications Plan: Diagnosed with ulcerative colitis. Patient will increase her mesalamine to 4.8 g. Patient will be sent for CT enterography. Patient reports abdominal cramping and discomfort will send her script for hyoscymine. If patient will continue to have pain will try to switch it to biologics. (2) Abdominal pain: Code(s): R10.9 - Unspecified abdominal pain Qualifiers: Abdominal location: left lower quadrant Qualified Code(s): R10.32 - Left lower quadrant pain Plan: Send patient script for hyoscymine. Patient will call our office if she continues to have abdominal cramping. I will see patient in 6 months, sooner on as needed basis. Patient is agreeable to this plan and verbalizes understanding of instructions. She was given the opportunity to ask questions a ll questions answered. Thank you for allowing me to participate in her care Orders: Orders CT enterography 06/17/23 K51.50 - Left sided colitis without complications, R10.9 - Unspecified abdominal pain Medications: New hyoscyamine sulfate 0.125 mg PO BID-QID PRN 120 tabs 2RF dyspepsia R10.9 - Unspecified abdominal pain Coding Level of Care Code Est Pt Level 4 (21610) Diagnoses Left sided ulcerative colitis without complication K51.50 Digestive disease complication type: without complication Left lower quadrant abdominal pain R10.32 Abdominal location: left lower quadrant Time Spent (min) 35 Comment 20 minutes spent with patient and additional 15 minutes spent reviewing her records
== END ==
PROVIDERS: PCP Internal Medicine; Visit Provider Nurse Practitioner Family
DX: K51.50 Left sided colitis without complications (principal); R10.32 Left lower quadrant pain
CPT/HCPCS: 99214

== ENCOUNTER → 2023-06-17 15:48 | Outpatient (BNVA) | payer OTHER, SELFPAY | PROVIDERS: PCP Internal Medicine; Visit Provider Nurse Practitioner Family ==

== ENCOUNTER 2023-06-23 07:37 | Outpatient (AMB) | payer OTHER, SELFPAY ==
[2023-06-23 07:57] VITALS: BP 120/78; PULSE 59; O2SAT 99; BMI 23.6
--- NOTE | 2023-06-23 07:57 | MHC.PC.OV ---
Vital Signs 06/23/23 07:57 Height 5 ft Weight 121 lb BMI 23.6 BP 120/78 Blood Pressure Location Lt brachial Position Sitting Pulse 59 Pulse Source Pulse Oximeter Pulse Oximetry (%) 99 Oxygen Delivery Method Room Air Intake Visit Reasons: pe Intake Note: Pt is here today for PE. Allergies codeine [CODEINE] Allergy (Unknown, Verified 06/23/23 08:09) RASH oxycodone [Percocet] Allergy (Unknown, Verified 06/23/23 08:09) rash Medication List - Last Reconciled 06/23/23 by Delmi Ernandez MD aripiprazole (Abilify) 2 mg PO DAILY atenolol 50 mg PO DAILY xjnqmlwelz-uohwchqjbllpw-tkdi 50-325-40 mg 1 cap PO . every 12 hours PRN citalopram 20 mg PO DAILY hyoscyamine sulfate 0.125 mg PO BID-QID PRN Lialda (mesalamine) 2.4 grams (2 x 1.2 gram) PO DAILY 30 days NS lorazepam 1 mg PO DAILY PRN mesalamine with cleansing wipe 4 gram/60 mL 4 grams (60 mL) NE BEDTIME trazodone 100 mg PO BEDTIME PRN valacyclovir 2,000 mg (2 x 1 gram) PO Q12H PRN Tobacco use date assessed: 06/22/22 Dental Screening Dental Screen Date: 06/23/23 Did you have a dental visit in the last 12 months?: Yes Did you have a dental problem in the last 6 months where you did not have access to dental care?: No Was dental information given to patient?: Patient has dentist HPI pe HPI Details 52-year-old lady here today for physical exam. She has hypertension, stable controlled on atenolol 50 mg daily, has migraine headache, tried triptans in the past which has not helped and takes occasional Fioricet, needs refills. She has anxiety depression, currently followed by psychiatry, stable on current medications. Has recurrent cold sores, takes valacyclovir as needed. Recently diagnosed with left-sided ulcerative colitis currently on mesalamine, still having intermittent lower abdominal and left-sided pain, dicyclomine was discontinued and patient was placed on hyoscyamine 2 days ago by her GI. Is scheduled for CT enterography next month. Up-to-date with her screening colonoscopy. Has not had any mammogram or recent cervical cancer screening, previously was being seen at [facility]. Declines getting referral or doing a a cervical cancer screening today but agrees to getting mammogram scheduled. She does not want to get any COVID vaccines, and does not want to get flu shots or any other vaccine at present time. 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 COVID-19 vaccine series declined Essential hypertension History of Clostridioides difficile colitis Impaired fasting glucose Migraine headache Peroneal tendinitis Plantar fasciitis, left Recurrent cold sores Surgical History Hx of colonoscopy Family History Father Substance use disorder Sister Mental health disorder Social History Housing: House Alcohol intake: current Alcohol intake frequency: holidays/special occasions only Alcohol type: beer and wine Patient Tobacco Use Status: Former Tobacco user Years Smoked: 6 yrs e-Cigarette/Vaping Use: Never Used Second Hand Smoke Exposure: No Substance Use Type: Marijuana service: No Current occupational status: employed Cognitive needs: No Hearing needs: No Vision needs: No Female Reproductive History Menstrual Menopause type: natural Questionnaire PHQ-9 Over the last 2 weeks, how often have you been bothered by any of the following problems? 1. Little interest or pleasure in doing things: not at all 2. Feeling down, depressed, or hopeless: not at all 3. Trouble falling or staying asleep, or sleeping too much: several days 4. Feeling tired or having little energy: not at all 5. Poor appetite or overeating: not at all 6. Feeling bad about yourself - or that you are a failure or have let yourself or your family down: not at all 7. Trouble concentrating on things, such as reading the newspaper or watching television: not at all 8. Moving or speaking so slowly that other people could have noticed. Or the opposite - being so fidgety or restless that you have been moving around a lot more than usual: not at all 9. Thoughts that you would be better off or of hurting yourself in some way: not at all Total score: 1 Depression Screening Interpretation: Negative (Depression stable and controlled on present treatment, see psych in [place]) [address]6569 - PHQ-9 Billing: Yes Source: Developed by Drs. Rolf Latif, Shyann Mena, Lorenzo Burton and colleagues, with an educational miguel from [employer]. Thrive Questionnaire Date Thrive assessed: 06/23/23 I am a: Patient What is your living situation today?: I have a steady place to live Within the past 12 months, did the food you bought not last and you didn't have the money to get more?: Never true Within the past 12 months, did you worry whether your food would run out before you got money to buy more?: Never true Do you have trouble paying for medicines?: No Do you have trouble getting transportation to medical appointments?: No Do you have trouble paying your heating and electricity bill?: No Do you have trouble taking care of your child, family member or friend?: No Do you have trouble with day-to-day activities such as bathing, preparing meals, shopping, managing finances, etc.?: No Are you currently unemployed and looking for a job?: No Are you interested in more education?: No Please select the resources that you would like help with: None AUDIT C Alcohol Use Questionnaire (AUDIT-C) 1. How often do you have a drink containing alcohol?: Monthly or less 2. How many drinks containing alcohol do you have on a typical day when you are drinking?: 1 or 2 3. How often do you have six or more drinks on one occasion?: Never Total Score: 1 CLAYTON-7 AMB Questionnaire CLAYTON-7 Date CLAYTON - 7 assessed: 06/23/23 Feeling nervous, anxious, or on edge: 0 = Not at all Not being able to stop or control worryin = Not at all Worrying too much about different things: 0 = Not at all Trouble relaxin = Not at all Being so restless that it is hard to sit still: 0 = Not at all Becoming easily annoyed or irritable: 0 = Not at all Feeling afraid as if something awful might happen: 0 = Not at all Total CLAYTON-7 score (0-4 normal; 5-9 mild; 10-14 moderate; 15-21 severe): 0 Source: Developed by Drs. Rolf Latif, Shyann Mena, Lorenzo Burton and colleagues, with an educational miguel from [employer]. CLAYTON-7 Assessment Billing CLAYTON-7 Assessment Tool: CLAYTON-7 Assessment 87260 Review of Systems Const Reports fatigue, Reports headache(s) (Occasional migraine headaches), Denies malaise, Reports poor appetite and Reports weight loss Eyes Reports blurry vision (With reading, overdue for eye exam) ENT Reports no additional complaints, Reports Normal hearing present, Denies dysphagia, Denies dizziness, Reports headache(s) (Occasional migraine headaches), Denies odynophagia and Denies disequilibrium Card Denies chest pain, Denies chest pain with activity, Denies rapid heart rate, Denies irregular heart rhythm and Denies lightheadedness Resp Reports no additional complaints GI Reports as per HPI, Denies melena, Reports bloating, Denies change in bowel habits, Denies dysphagia, Denies excessive flatus, Denies dyspepsia, Denies heartburn, Reports diarrhea (Occasional), Denies loose stools, Denies nausea, Denies odynophagia and Denies vomiting Reports no additional complaints Musc Denies arthralgias and Reports stiffness Skin/Breast Denies breast pain, Denies breast mass, Denies lesions and Denies rash Neuro Reports no additional complaints, Reports Normal hearing present, Denies Abnormal speech present, Denies dizziness, Reports headache(s) (Occasional migraine headaches), Denies seizure-like activity, Denies Sensory deficit (Neuro), Denies paresthesias and Denies disequilibrium Psych Reports no additional complaints Endo Reports no additional complaints and Reports fatigue Virgil/Lymph Denies easy bleeding and Denies easy bruising Aller/Immun Reports no additional complaints Physical exam (Primary Care) Vital Signs: Last Vital Signs Pulse 59 06/23/23 07:57 BP 120/78 06/23/23 07:57 Pulse Ox 99 06/23/23 07:57 Oxygen Delivery Method Room Air 06/23/23 07:57 BMI result Body Mass Index 23.6 Tobacco/Smoking Status: Tobacco use Status Tobacco use date assessed 06/22/22 06/23/23 08:03 Patient Tobacco Use Status Former Tobacco user 06/23/23 08:03 e-Cigarette/Vaping Use Never Used 06/23/23 08:03 PHQ-9: PHQ-9 Score PHQ-9: Total score 1 06/23/23 08:03 Depression Screening Interpretation: Negative (Depression stable and controlled on present treatment, see psych in [place]) Thrive Assessment: Date of Thrive Assessment Date Thrive assessed 06/23/23 06/23/23 08:03 Const General: cooperative, comfortable, no acute distress and alert Nutritional Appearance: average body habitus Orientation/consciousness: patient oriented x3 HENMT Ears: hearing grossly normal bilaterally, TM's normal bilaterally and EAC's normal General nose exam: Normal external nose present and No nasal discharge present Face and sinus: Yes face symmetric Mouth: Normal oral and palatal mucosa present, tongue normal, oropharynx normal and moist mucous membranes Eyes General: appearance normal, both eyes and all related structures Neck Neck: Yes normal visual inspection, Yes full ROM, Yes no lymphadenopathy and Yes supple Thyroid: Thyroid normal Chest Breast/axilla inspection: normal inspection of the breasts Breast/axilla palpation: normal palpation of the breasts Resp Effort & Inspection: normal respiratory effort Auscultation: clear to auscultation bilaterally Cardio Rate: regular rate Rhythm: regular rhythm Heart sounds: S1 normal heart sound present and S2 normal heart sound present GI Palpation (GI): Soft to palpation, Tenderness to palpation present (GI) (lower abdomen) in the LLQ and in the LUQ, no guarding and no masses General: Yes no CVA tenderness and Yes deferred Back/Spine/Pelvis Back: no CVA tenderness and No back tenderness Skin General skin exam: no rashes or lesions noted Neuro General: patient oriented x3, gait normal, tone normal, Normal light touch and pain sensation, no focal motor deficits and CN's II-XI intact bilaterally Cranial nerves: Yes Normal hearing present Cognition (Neuro): normal cognition Speech: No Abnormal speech present Gait exam (Neuro): Normal gait present Sensory Exam: No Sensory deficit (Neuro) Extrem General: Yes full ROM, Yes no joint enlargement, Yes no pedal edema, Yes no calf tenderness and Yes normal gait Psych Appearance: grossly normal and well kempt Mental Status: mental status grossly normal Speech and movement: Normal speech and movement present Affect: normal affect Attitude: cooperative Thought process: Normal thought process present Thought content: Normal thought content present Assessment and Plan Assessment & Plan (1) Left sided ulcerative colitis: Comment: ff'd by [facility] Code(s): K51.50 - Left sided colitis without complications Plan: Followed by [facility] currently on hyoscyamine and mesalamine, scheduled for a CT enterography next month. Up-to-date with her screening colonoscopy (2) Migraine headache: Code(s): G43.909 - Migraine, unspecified, not intractable, without status migrainosus Plan: Refill sent for her Fioricet to take as needed only for migraine headaches. (3) Anxiety and depression: Comment: Followed by psychiatry Code(s): F41.9 - Anxiety disorder, unspecified; F32.A - Depression, unspecified Plan: Currently being followed by Psychiatry, on citalopram lorazepam as needed trazodone and aripiprazole (4) Essential hypertension: Code(s): I10 - Essential (primary) hypertension Plan: Blood pressure at goal of less than 130/80. Continue with atenolol 50 mg daily. Reinforced importance of following a low sodium diet, getting regular exercise, and lowering stress levels. (5) Annual visit for general adult medical examination with abnormal findings: Code(s): Z00.01 - Encounter for general adult medical examination with abnormal findings Plan: Will check appropriate labs. Recommended dental visit every 6 months and regular eye exams, at least every 2 years. Take adequate calcium in diet and vitamin-D 3 at 2000 IU per cap once a day, in addition to weight-bearing exercises to help maintain good muscle tone and weight control. Instructed to do self-breast exam, and recommended to get yearly mammogram, ordered. Declined cervical cancer screening up-to-date with her screening colonoscopy , declines getting any vaccines at present time (6) Recurrent cold sores: Code(s): B00.1 - Herpesviral vesicular dermatitis Plan: Refill sent for her valacyclovir take at the 1st sign of a cold sore (7) COVID-19 vaccine series declined: Code(s): Z28.21 - Immunization not carried out because of patient refusal Orders: Orders Alanine Aminotransferase Today F32.A - Depression, unspecified, F41.9 - Anxiety disorder, unspecified, G43.909 - Migraine, unspecified, not intractable, without status migrainosus, I10 - Essential (primary) hypertension, K51.50 - Left sided colitis without complications, Z00.01 - Encounter for general adult medical examination with abnormal findings, Z78.0 - Asymptomatic menopausal state Aspartate Amino Transferase Today F32.A - Depression, unspecified, F41.9 - Anxiety disorder, unspecified, G43.909 - Migraine, unspecified, not intractable, without status migrainosus, I10 - Essential (primary) hypertension, K51.50 - Left sided colitis without complications, Z00.01 - Encounter for general adult medical examination with abnormal findings, Z78.0 - Asymptomatic menopausal state Vitamin B12 and Folate Today F32.A - Depression, unspecified, F41.9 - Anxiety disorder, unspecified, G43.909 - Migraine, unspecified, not intractable, without status migrainosus, I10 - Essential (primary) hypertension, K51.50 - Left sided colitis without complications, Z00.01 - Encounter for general adult medical examination with abnormal findings, Z78.0 - Asymptomatic menopausal state Basic Metabolic Panel Fasting Today F32.A - Depression, unspecified, F41.9 - Anxiety disorder, unspecified, G43.909 - Migraine, unspecified, not intractable, without status migrainosus, I10 - Essential (primary) hypertension, K51.50 - Left sided colitis without complications, Z00.01 - Encounter for general adult medical examination with abnormal findings, Z78.0 - Asymptomatic menopausal state Lipid Panel Today F32.A - Depression, unspecified, F41.9 - Anxiety disorder, unspecified, G43.909 - Migraine, unspecified, not intractable, without status migrainosus, I10 - Essential (primary) hypertension, K51.50 - Left sided colitis without complications, Z00.01 - Encounter for general adult medical examination with abnormal findings, Z78.0 - Asymptomatic menopausal state TSH reflex Free T4 Today F32.A - Depression, unspecified, F41.9 - Anxiety disorder, unspecified, G43.909 - Migraine, unspecified, not intractable, without status migrainosus, I10 - Essential (primary) hypertension, K51.50 - Left sided colitis without complications, Z00.01 - Encounter for general adult medical examination with abnormal findings, Z78.0 - Asymptomatic menopausal state Vitamin D 25-OH Total Today F32.A - Depression, unspecified, F41.9 - Anxiety disorder, unspecified, G43.909 - Migraine, unspecified, not intractable, without status migrainosus, I10 - Essential (primary) hypertension, K51.50 - Left sided colitis without complications, Z00.01 - Encounter for general adult medical examination with abnormal findings, Z78.0 - Asymptomatic menopausal state Complete Blood Count Auto Diff Today F32.A - Depression, unspecified, F41.9 - Anxiety disorder, unspecified, G43.909 - Migraine, unspecified, not intractable, without status migrainosus, I10 - Essential (primary) hypertension, K51.50 - Left sided colitis without complications, Z00.01 - Encounter for general adult medical examination with abnormal findings, Z78.0 - Asymptomatic menopausal state MM screening mammo BI Today Z00.01 - Encounter for general adult medical examination with abnormal findings, Z12.31 - Encounter for screening mammogram for malignant neoplasm of breast Medications: Refilled izgkexpvnj-rbbtkocltwnhz-gzio 50-325-40 mg 1 cap PO . every 12 hours PRN 10 caps 0RF headache valacyclovir 2,000 mg (2 x 1 gram) PO Q12H PRN 4 tabs 5RF recurrent cold sores Review Flu Vaccine not done: patient reason Coding Level of Care Code Est Pt Prev Care 40-64y(19058) Diagnoses Left sided ulcerative colitis K51.50 Migraine headache G43.909 Anxiety and depression F41.9; F32.A Essential hypertension I10 Annual visit for general adult medical examination with abnormal findings Z00.01 Recurrent cold sores B00.1 COVID-19 vaccine series declined Z28.21 Additional Codes CLAYTON-7 Assessment Billing - CLAYTON-7 Assessment Tool: CLAYTON-7 Assessment 68711 ([id number])
== END 2023-06-23 08:31 | disposition home or self-care (01) ==
PROVIDERS: PCP Internal Medicine; Visit Provider Internal Medicine
DX: Z00.01 Encounter for general adult medical examination with abnormal findings (principal); G43.909 Migraine, unspecified, not intractable, without status migrainosus; F41.9 Anxiety disorder, unspecified; I10 Essential (primary) hypertension; K51.50 Left sided colitis without complications; F32.A Depression, unspecified; B00.1 Herpesviral vesicular dermatitis; Z28.21 Immunization not carried out because of patient refusal
CPT/HCPCS: 99396

== ENCOUNTER 2023-06-23 08:31 | Outpatient (REF) | payer OTHER, SELFPAY ==
[2023-06-23 11:21] LABS: MANUAL DIFF FLAG NO
[2023-06-23 11:44] LABS: Basophils Percent Auto 0.7 % (0-2); Eosinophils Absolute Auto 0.1 X10*3/uL (0.0-0.4); Eosinophils Percent Auto 2.9 % (0-4); Hematocrit 38.9 % (37.0-47.0); Imm Gran Abs Auto 0.01 X10*3/uL (0.00-0.03); Imm Gran Pct Auto 0.2 % (0.0-0.4); Lymphocytes Absolute Auto 1.7 X10*3/uL (1.2-4.9); Lymphocytes Percent Auto 38.9 % (20-40); Mean Corpuscular HGB Conc 33.4 g/dl (31.0-35.0); Mean Corpuscular Hemoglobin 31.6 pg (27.0-33.0); Mean Corpuscular Volume 94.6 fL (80.0-98.0); Mean Platelet Volume 9.6 fL (9.4-12.3); Monocytes Absolute Auto 0.5 X10*3/uL (0.1-1.2); Monocytes Percent Auto 11.2 % (2-11); Neutrophils Absolute Auto 2.1 x10*3/uL (2.0-8.3); Neutrophils Percent Auto 46.1 % (45-73); Platelet Count 305 X10*3/uL (160-400); Red Blood Count 4.11 X10*6/uL (4.20-5.50); Red Cell Distribution Width 12.6 % (11.0-16.0); White Blood Count 4.5 X10*3/uL (4.8-10.8)
[2023-06-23 12:18] LABS: Alanine Aminotransferase 13 U/L (0-31); Anion Gap 9 (12-20); Aspartate Amino Transferase 19 U/L (5-31); Blood Urea Nitrogen 9 mg/dL (9-16); Calcium 9.5 mg/dL (8.4-10.2); Carbon Dioxide 29 mmol/L (22-29); Chloride 104 mmol/L (96-108); Cholesterol 211 mg/dL (<200); Estimated Glomerular Filt Rate > 60; Glucose Fasting 108 mg/dL (60-99); HDL Cholesterol 58 mg/dL (>40); LDL Cholesterol Calculated 126 mg/dL (<100); Potassium 3.9 mmol/L (3.3-5.1); Sodium 138 mmol/L (135-145); Triglycerides 135 mg/dL (<150)
[2023-06-23 12:22] LABS: Vitamin D 25-OH Total 32.1 ng/mL (>30)
[2023-06-23 12:31] LABS: Vitamin B12 728 pg/mL (200-900)
== END 2023-06-23 08:32 | disposition home or self-care (01) ==
LOC: HO.HMGCLDS 08:31
PROVIDERS: Absent Provider Nurse Practitioner Family; PCP Internal Medicine; Visit Provider Internal Medicine
DX: I10 Essential (primary) hypertension (principal); K51.50 Left sided colitis without complications; G43.909 Migraine, unspecified, not intractable, without status migrainosus; F41.9 Anxiety disorder, unspecified; F32.A Depression, unspecified; Z00.01 Encounter for general adult medical examination with abnormal findings; Z78.0 Asymptomatic menopausal state
CPT/HCPCS: 36415; 80048; 80061; 82306; 82607; 82746; 84443; 84450; 84460; 85025

== ENCOUNTER 2023-06-29 12:10 | Outpatient (REF) | payer OTHER, SELFPAY ==
--- NOTE | ~2023-06-29 | CT_ITS ---
EXAMINATION: CT ENTEROGRAPHY ABDOMEN AND PELVIS WITH CONTRAST CLINICAL INFORMATION: Left-sided colitis without complications. COMPARISON: 12/29/2022 TECHNIQUE: Study performed with oral VoLumen (1350 mL) and 480 mL of water to distend the abdomen. The patient was injected with 85 mL Omnipaque 350 intravenous contrast which was administered without adverse effect. Coronal and sagittal reformatted images were obtained at the technologist's workstation. This CT examination was performed using dose optimization techniques as appropriate, variously including the following: *Automated exposure control *Adjustment of mA and/or kV according to patient size (this includes techniques or standardized protocols for targeted exams where dose is matched to indication/reason for exam; i.e. extremities or head) *Use of iterative reconstruction technique DLP: 265 mGy-cm FINDINGS: GASTROINTESTINAL FINDINGS: Stomach: Well-distended and normal in appearance. Small intestine: Inadequate distention of mid small bowel. No surrounding inflammatory changes. No small bowel obstruction. No abnormal dilatation. Large intestine: Well-distended. No focal wall thickening. Retained radiopacities in the ascending colon. No perirectal changes demonstrated. The appendix is not visualized. Additional findings: No abnormal enhancement of the vasa recta or significant mesenteric or retroperitoneal lymphadenopathy is seen. No abdominal abscess or fistulous tract demonstrated. ABDOMINAL AND PELVIC CT FINDINGS: Liver, gallbladder, biliary tract: The liver is normal in size and contour. No focal hepatic lesion. No biliary ductal dilatation. The gallbladder is unremarkable. Pancreas: No ductal dilatation. Spleen: Not enlarged. Adrenal glands and kidneys: No adrenal mass. The kidneys are symmetric in size and enhancement. No hydronephrosis or perinephric stranding. Ureters and bladder: The bladder is underdistended. Lymphovascular structures: No bulky abdominal or pelvic lymphadenopathy. Normal caliber abdominal aorta. Pelvic viscera: The uterus is anteverted. Intrauterine device is in place. No large adnexal masses are appreciated. Bones: No destructive bone lesions. Lung bases: No pleural or pericardial effusion. CT/CT enterography IMPRESSION: Inadequate distention of the mid small bowel. No abnormal enhancement or focal/segmental wall thickening. Retained radiopacities in the ascending colon. Advise clinical correlation.
[2023-06-29] MEDS: iohexoL 350 MG/ML 100 ML INFUS..BTL IV (14:44)
[2023-06-29] MEDS: Sorbitol/Mannit/Xanth Imaging 500 ML LIQUID 1500 ML PO (14:45)
== END 2023-06-29 12:11 | disposition home or self-care (01) ==
LOC: HO.CT 12:10
PROVIDERS: PCP Internal Medicine; Visit Provider Nurse Practitioner Family
DX: K51.50 Left sided colitis without complications (principal); R10.9 Unspecified abdominal pain
CPT/HCPCS: 74177; Q9967

== ENCOUNTER 2023-07-30 07:26 | Outpatient (REF) | payer OTHER, SELFPAY | END 2023-07-30 07:27 | disposition home or self-care (01) | LOC: HO.MAMMO 07:26 | PROVIDERS: PCP Internal Medicine; Visit Provider Internal Medicine | DX: Z12.31 Encounter for screening mammogram for malignant neoplasm of breast (principal) | CPT/HCPCS: 77063; 77067 ==

== ENCOUNTER → 2023-07-30 07:45 | Outpatient (BNV) | payer OTHER, SELFPAY | PROVIDERS: PCP Internal Medicine; Visit Provider Radiology Diagnostic Radiology | DX: Z12.31 Encounter for screening mammogram for malignant neoplasm of breast (principal) | CPT/HCPCS: 77063; 77067 ==

== ENCOUNTER 2023-10-07 14:06 | Outpatient (REF) | payer OTHER, SELFPAY ==
[2023-10-07 14:52] LABS: Hematocrit 37.6 % (37.0-47.0); Hemoglobin 12.8 g/dl (12.0-16.0); Mean Corpuscular Hemoglobin 32.2 pg (27.0-33.0); Mean Corpuscular Volume 94.7 fL (80.0-98.0); Mean Platelet Volume 9.5 fL (9.4-12.3); Platelet Count 313 X10*3/uL (160-400); Red Blood Count 3.97 X10*6/uL (4.20-5.50); White Blood Count 4.6 X10*3/uL (4.8-10.8)
[2023-10-07 15:23] LABS: C Reactive Protein < 0.10 mg/dL (< or = 0.50)
[2023-10-13 18:13] LABS: Adalimumab Drug Level 15.6 mcg/mL; Anti-Adalimumab Antibody <10 AU (<10)
== END 2023-10-07 14:07 | disposition home or self-care (01) ==
LOC: HO.LAB 14:06
PROVIDERS: PCP Internal Medicine; Visit Provider Nurse Practitioner Family
DX: K21.9 Gastro-esophageal reflux disease without esophagitis (principal); K51.90 Ulcerative colitis, unspecified, without complications; K51.50 Left sided colitis without complications; R10.32 Left lower quadrant pain; Z79.899 Other long term (current) drug therapy
CPT/HCPCS: 36415; 80145; 83520; 85027; 86140

== ENCOUNTER 2023-10-07 14:27 | Outpatient (AMB) | payer OTHER, SELFPAY ==
[2023-10-07 14:35] VITALS: BP 107/71; PULSE 60; BMI 23.4
--- NOTE | 2023-10-07 14:35 | A.OFFVIS_ITS ---
Intake Vital Signs 10/07/23 14:35 Height 5 ft Weight 119 lb 14.903 oz BMI 23.4 BP 107/71 Blood Pressure Location Lt brachial Position Sitting Pulse 60 Pulse Source Pulse Oximeter Intake Visit Reasons: abdominal pains Intake Note: Pt presents to the office today for abdominal pain. Pt states her abdominal pain is still bad but she is no longer having diarrhea. Pt states she is very uncomfortable due to her stomach pain. Pt denies any nausea or vomiting. Allergies codeine [CODEINE] Allergy (Unknown, Verified 10/07/23 14:36) RASH oxycodone [Percocet] Allergy (Unknown, Verified 10/07/23 14:36) rash HPI abdominal pains HPI Details LAST VISIT: Left sided ulcerative colitis Diagnosed with ulcerative colitis. Patient will increase her mesalamine to 4.8 g. Patient will be sent for CT enterography. Patient reports abdominal cramping and discomfort will send her script for hyoscymine. If patient will continue to have pain will try to switch it to biologics. Abdominal pain Send patient script for hyoscymine. Patient will call our office if she continues to have abdominal cramping. I will see patient in 6 months, sooner on as needed basis. Patient is agreeable to this plan and verbalizes understanding of instructions. She was given the opportunity to ask questions all questions answered. ? Thank you for allowing me to participate in her care Plan Orders Orders CT enterography 06/17/23 K51.50, R10.9 Medications New hyoscyamine sulfate 0.125 mg PO BID-QID PRN 120 tabs 2RF dys pepsia R10.9 TODAY'S VISIT Patient is here today for follow-up. Patient reports that she has been doing better, however in the last couple weeks she has been experiencing more left lower quadrant pain. Patient denies any melena, hematochezia, unintentional weight loss or ribbon like stools. CT enterography discussed with patient. No inflammatory changes seen. Patient reports that she no longer has diarrhea. Reports that her stools are soft. No mucous. Patient denies any nausea or vomiting. Patient reports that the pain is there not related to food. Patient states that she is moving her bowels and feels like she is empty completely. Patient reports that she is under lot of stress as she needs to get paperwork for work so she will not lose her job. 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 Plantar fasciitis, left Surgical History Hx of colonoscopy Family History Father Substance use disorder Sister Mental health disorder Social History Housing: House Alcohol intake: current Alcohol intake frequency: holidays/special occasions only Alcohol type: beer and wine Patient Tobacco Use Status: Former Tobacco user Years Smoked: 6 yrs e-Cigarette/Vaping Use: Never Used Second Hand Smoke Exposure: No Substance Use Type: Marijuana service: No Current occupational status: employed Cognitive needs: No Hearing needs: No Vision needs: No Review of Systems Const Denies weight gain and Denies weight loss ENT Reports no additional complaints, Denies dysphagia and Denies odynophagia Card Reports no additional complaints Resp Reports no additional complaints GI Reports abdominal pain (LLQ), Denies belching, Denies melena, Denies bloating, Denies change in bowel habits, Denies dysphagia, Denies excessive flatus, Denies dyspepsia, Denies heartburn, Denies diarrhea, Denies loose stools, Denies nausea, Denies odynophagia and Denies vomiting Reports no additional complaints Musc Reports no additional complaints Neuro Reports no additional complaints Psych Reports no additional complaints Endo Reports no additional complaints Physical Exam Vital Signs: Last Vital Signs Pulse 60 10/07/23 14:35 BP 107/71 10/07/23 14:35 BMI result Body Mass Index 23.4 Const General: healthy appearing, no acute distress and well developed Nutritional Appearance: well nourished Orientation/consciousness: patient oriented x3 HEENT Head: Yes normal to inspection, Yes normocephalic and Yes atraumatic Face and sinus: Yes normal facial exam Mouth: Normal oral and palatal mucosa present Throat: Yes posterior oropharynx normal, Yes tonsils normal and Yes uvula midline Eyes General: appearance normal, both eyes and all related structures Neck Neck: Yes normal visual inspection, Yes full ROM and Yes trachea midline Thyroid: Thyroid normal Resp Effort & Inspection: normal respiratory effort, able to speak in complete sentences, no tracheal deviation and symmetric chest movement Auscultation: clear to auscultation bilaterally Cardio Rate: regular rate Heart sounds: Gallop heart sound present and Murmur heart sound present GI Inspection: Yes normal to inspection and No distended Palpation (GI): Soft to palpation, not firm, Tenderness to palpation present (GI) (LLQ) and No hepatosplenomegaly present Auscultation: normal bowel sounds General: Yes no CVA tenderness Back/Spine/Pelvis Back: no CVA tenderness Skin General skin exam: elasticity normal, turgor normal and dry skin Neuro General: patient oriented x3 Psych Appearance: grossly normal Mental Status: mental status grossly normal Results Reviewed Results Reviewed: CT ENTEROGRAPHY FINDINGS: GASTROINTESTINAL FINDINGS: Stomach: Well-distended and normal in appearance. Small intestine: Inadequate distention of mid small bowel. No surrounding inflammatory changes. No small bowel obstruction. No abnormal dilatation. Large intestine: Well-distended. No focal wall thickening. Retained radiopacities in the ascending colon. No perirectal changes demonstrated. The appendix is not visualized. Additional findings: No abnormal enhancement of the vasa recta or significant mesenteric or retroperitoneal lymphadenopathy is seen. No abdominal abscess or fistulous tract demonstrated. ABDOMINAL AND PELVIC CT FINDINGS: Liver, gallbladder, biliary tract: The liver is normal in size and contour. No focal hepatic lesion. No biliary ductal dilatation. The gallbladder is unremarkable. Pancreas: No ductal dilatation. Spleen: Not enlarged. Adrenal glands and kidneys: No adrenal mass. The kidneys are symmetric in size and enhancement. No hydronephrosis or perinephric stranding. Ureters and bladder: The bladder is underdistended. Lymphovascular structures: No bulky abdominal or pelvic lymphadenopathy. Normal caliber abdominal aorta. Pelvic viscera: The uterus is anteverted. Intrauterine device is in place. No large adnexal masses are appreciated. Bones: No destructive bone lesions. Lung bases: No pleural or pericardial effusion. CT/CT enterography IMPRESSION: Inadequate distention of the mid small bowel. No abnormal enhancement or focal/segmental wall thickening. Retained radiopacities in the ascending colon. Advise clinical correlation. Assessment & Plan Assessment & Plan (1) Left sided ulcerative colitis: Code(s): K51.50 - Left sided colitis without complications Qualifiers: Digestive disease complication type: without complication Qualified Code(s): K51.50 - Left sided colitis without complications (2) Abdominal pain: Code(s): R10.9 - Unspecified abdominal pain Qualifiers: Abdominal location: left lower quadrant Qualified Code(s): R10.32 - Left lower quadrant pain Plan Will check to see if patient is in remission and her symptoms of abdominal pain are related to severe diverticulosis and possibility not emptying her bowels completely or is in fact poorly treated UC. Patient is taking mesalamine, not taking any biologics. If patient is in remission we will leave her on this and how her with pain and managing her bowels. Discussed with patient also her diet. Will check her stool, GI panel ordered as well as C diff. according to biopsy left side of colon without active colitis, rectal involvement seen. Enterography showed normal colon without any inflammatory changes. Patient might need a alternative treatment pending results. I will see her in 6 months, sooner on as needed basis. Patient is agreeable to this plan and verbalizes understanding of instructions. She was given the opportunity to ask questions and all questions answered. Thank you for allowing me to participate in her care Orders: Orders Adalimumab+Ab 10/07/23 K51.90 - Ulcerative colitis, unspecified, without complications C Reactive Protein 10/07/23 K58.9 - Irritable bowel syndrome without diarrhea CDiff Gene PCR 10/13/23 R19.7 - Diarrhea, unspecified Complete Blood Count no Diff 10/07/23 K21.9 - Gastro-esophageal reflux disease without esophagitis GI Panel 10/13/23 R19.7 - Diarrhea, unspecified Coding Level of Care Code Est Pt Level 4 (77898) Diagnoses Left sided ulcerative colitis without complication K51.50 Digestive disease complication type: without complication Left lower quadrant abdominal pain R10.32 Abdominal location: left lower quadrant Time Spent (min) 35 Comment 20 minutes spent with patient and additional 15 minutes spent reviewing her records
== END 2023-10-07 15:11 | disposition home or self-care (01) ==
PROVIDERS: PCP Internal Medicine; Visit Provider Nurse Practitioner Family
DX: K51.50 Left sided colitis without complications (principal); R10.32 Left lower quadrant pain
CPT/HCPCS: 99214

== ENCOUNTER 2023-10-13 15:24 | Outpatient (REF) | payer OTHER, SELFPAY ==
[2023-10-13 16:38] LABS: CDiff Gene PCR NEGATIVE (Negative)
[2023-10-14 11:49] LABS: Adenovirus F 40/41 Not Detected (Not Detect.); Astrovirus Not Detected (Not Detect.); Campylobacter Not Detected (Not Detect.); Cryptosporidium Not Detected (Not Detect.); Cyclospora cayetanensis Not Detected (Not Detect.); E. coli EAEC Not Detected (Not Detect.); E. coli EPEC Not Detected (Not Detect.); E. coli ETEC Not Detected (Not Detect.); E. coli STEC Not Detected (Not Detect.); Entamoeba histolytica Not Detected (Not Detect.); Giardia lamblia Not Detected (Not Detect.); Norovirus GI/GII Not Detected (Not Detect.); Plesiomonas shigelloides Not Detected (Not Detect.); Rotavirus A Not Detected (Not Detect.); Salmonella Not Detected (Not Detect.); Sapovirus Not Detected (Not Detect.); Shigella sp./EIEC Not Detected (Not Detect.); Vibrio Not Detected (Not Detect.); Vibrio Cholerae Not Detected (Not Detect.); Yersinia enterocolitica Not Detected (Not Detect.)
[2023-10-20 21:48] LABS: Calprotectin, Fecal 32 mcg/g
== END 2023-10-13 15:25 | disposition home or self-care (01) ==
LOC: HO.LNP 15:24
PROVIDERS: Visit Provider Nurse Practitioner Family
DX: R19.7 Diarrhea, unspecified (principal); R15.9 Full incontinence of feces
CPT/HCPCS: 83993; 87493; 87507

== ENCOUNTER 2024-01-06 15:16 | Outpatient (AMB) | payer OTHER, SELFPAY ==
[2024-01-06 15:23] VITALS: BP 112/75; PULSE 63; BMI 22.8
--- NOTE | 2024-01-06 15:23 | A.OFFVIS_ITS ---
Intake Vital Signs 01/06/24 15:23 Height 5 ft Weight 116 lb 13.52 oz BMI 22.8 BP 112/75 Blood Pressure Location Lt brachial Position Sitting Pulse 63 Pulse Source Pulse Oximeter Intake Visit Reasons: 6 months f/u Intake Note: Pt presents to the office today for a 6 month follow up. She states her abdominal pain is much better than it was but she states when she takes the Cyltezo she states she is drained/tired for about 2-3 days after the injection. She denies any N/V/D. Allergies codeine [CODEINE] Allergy (Unknown, Verified 01/06/24 15:24) RASH oxycodone [Percocet] Allergy (Unknown, Verified 01/06/24 15:24) rash HPI 6 months f/u HPI Details LAST VISIT Left sided ulcerative colitis Abdominal pain Plan Will check to see if patient is in remission and her symptoms of abdominal pain are related to severe diverticulosis and possibility not emptying her bowels completely or is in fact poorly treated UC. Patient is taking mesalamine, not taking any biologics. If patient is in remission we will leave her on this and how her with pain and managing her bowels. Discussed with patient also her diet. Will check her stool, GI panel ordered as well as C diff. according to biopsy left side of colon without active colitis, rectal involvement seen. Enterography showed normal colon without any inflammatory changes. Patient might need a alternative treatment pending results. I will see her in 6 months, sooner on as needed basis. Patient is agreeable to this plan and verbalizes understanding of instructions. She was given the opportunity to ask questions and all questions answered. ? Thank you for allowing me to participate in her care Orders Orders Adalimumab+Ab 10/07/23 K51.90 C Reactive Protein 10/07/23 K58.9 CDiff Gene PCR 10/13/23 R19.7 Complete Blood Count no Diff 10/07/23 K21.9 GI Panel 10/13/23 R19.7 TODAY'S VISIT Patient is here today for follow-up. Patient reports that since the last time I have seen her she has been doing much better. Patient reports that she is started taking Cyltezo and has been doing well. Her symptoms have subsided. Patient reports that occasionally she will have abdominal cramping and loose stools, however for the most part patient reports that she is going to the bathroom without any issues and her stools are normal. Patient reports that after she takes her injection she might feel very tired for day or 2, however after couple days she states that she is feeling well. Patient has been taking medication every 2 weeks. Adalimumab levels were normal. Stool calprotectin 32 which was normal. Normal CRP negative GI panel and negative C diff. patient denies any melena, hematochezia, unintentional weight loss or ribbon like stools. 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 Plantar fasciitis, left Surgical History Hx of colonoscopy Family History Father Substance use disorder Sister Mental health disorder Social History Housing: House Alcohol intake: current Alcohol intake frequency: holidays/special occasions only Alcohol type: beer and wine Patient Tobacco Use Status: Former Tobacco user Years Smoked: 6 yrs e-Cigarette/Vaping Use: Never Used Second Hand Smoke Exposure: No Substance Use Type: Marijuana service: No Current occupational status: employed Cognitive needs: No Hearing needs: No Vision needs: No Review of Systems Const Denies weight gain and Denies weight loss ENT Reports no additional complaints, Denies dysphagia and Denies odynophagia Card Reports no additional complaints Resp Reports no additional complaints GI Denies abdominal pain, Denies belching, Denies melena, Reports bloating (Occasional), Denies change in bowel habits, Reports GI cramping (Occasional), Denies dysphagia, Denies excessive flatus, Denies dyspepsia, Denies heartburn, Denies diarrhea, Reports loose stools (Occasional), Denies nausea, Denies odynophagia and Denies vomiting Reports no additional complaints Musc Reports no additional complaints Neuro Reports no additional complaints Psych Reports no additional complaints Endo Reports no additional complaints Physical Exam Vital Signs: Last Vital Signs Pulse 63 01/06/24 15:23 BP 112/75 01/06/24 15:23 BMI result Body Mass Index 22.8 Const General: healthy appearing, no acute distress and well developed Nutritional Appearance: well nourished Orientation/consciousness: patient oriented x3 Resp Effort & Inspection: normal respiratory effort, able to speak in complete sentences, no tracheal deviation and symmetric chest movement Auscultation: clear to auscultation bilaterally Cardio Rate: regular rate GI Inspection: Yes normal to inspection and No distended Palpation (GI): Soft to palpation, not firm, nontender and No hepatosplenomegaly present Auscultation: normal bowel sounds General: Yes no CVA tenderness Back/Spine/Pelvis Back: no CVA tenderness Skin General skin exam: elasticity normal, turgor normal and dry skin Neuro General: patient oriented x3 Psych Appearance: grossly normal Mental Status: mental status grossly normal Affect: normal affect Results Reviewed Results Reviewed: Laboratory Tests 10/07/23 12 14:23 07:26 Stool Calprotectin 32 Adalimumab Level 15.6 Anti-Adalimumab Ab <10 C. difficile Tox B Gene NEGATIVE Assessment & Plan Assessment & Plan (1) Left sided ulcerative colitis: Code(s): K51.50 - Left sided colitis without complications Qualifiers: Digestive disease complication type: without complication Qualified Code(s): K51.50 - Left sided colitis without complications (2) Abdominal pain: Code(s): R10.9 - Unspecified abdominal pain Qualifiers: Abdominal location: left lower quadrant Qualified Code(s): R10.32 - Left lower quadrant pain (3) Inflammatory bowel disease: Code(s): K52.9 - Noninfective gastroenteritis and colitis, unspecified Plan Continue management with mesalamine and Cyltezo. Patient will return in 6 months for re-evaluation. Will recheck her lab work. Patient will call our office if she will have any signs and symptoms of infection, increase weakness, any respiratory symptoms. Patient is agreeable to current plan of care and verbalizes understanding of instructions. She was given the opportunity to ask questions and all questions answered. Thank you for allowing me to participate in her care Orders: Orders Liver Panel 6 Months R74.01 - Elevation of levels of liver transaminase levels T Spot TB 6 Months K52.9 - Noninfective gastroenteritis and colitis, unspecified Medications: Refilled mesalamine (Lialda) 2.4 grams (2 x 1.2 gram) PO DAILY 30 days 60 tabs 3RF K51.50 - Left sided colitis without complications adalimumab-adbm (Cyltezo(CF)) 160 mg (3.2 mL) subcut ONCE 2 ea 1RF K51.90 - Ulcerative colitis, unspecified, without complications Coding Level of Care Code Est Pt Level 4 (42283) Diagnoses Left sided ulcerative colitis without complication K51.50 Digestive disease complication type: without complication Left lower quadrant abdominal pain R10.32 Abdominal location: left lower quadrant Inflammatory bowel disease K52.9 Time Spent (min) 35 Comment 20 minutes spent with patient and additional 15 minutes spent reviewing her records
== END 2024-01-06 15:50 | disposition home or self-care (01) ==
PROVIDERS: PCP Internal Medicine; Referring Provider Internal Medicine; Visit Provider Nurse Practitioner Family
DX: K51.50 Left sided colitis without complications (principal); R10.32 Left lower quadrant pain; K52.9 Noninfective gastroenteritis and colitis, unspecified
CPT/HCPCS: 99214

== ENCOUNTER → 2024-01-06 15:16 | Outpatient (BNVA) | payer OTHER, SELFPAY | PROVIDERS: PCP Internal Medicine; Visit Provider Nurse Practitioner Family ==

== ENCOUNTER 2024-02-15 08:27 | Outpatient (AMB) | payer OTHER, SELFPAY ==
[2024-02-15 08:49] VITALS: BP 110/80; PULSE 65; TEMP 36.7; O2SAT 97; BMI 22.7
--- NOTE | 2024-02-15 08:49 | MHC.OFFWIV ---
Intake Vital Signs 02/15/24 08:49 Height 5 ft Weight 116 lb BMI 22.7 BP 110/80 Blood Pressure Location Lt brachial Position Sitting Pulse 65 Pulse Source Pulse Oximeter Temp 98.1 F Temp Source Temporal Artery Scan Pulse Oximetry (%) 97 Oxygen Delivery Method Room Air Intake Visit Reasons: EP RT foot swelling/injury Intake Note: pt is here today for rt foot swelling injury started yesterday Patient Tobacco Use Status: Former Tobacco user Allergies codeine [CODEINE] Allergy (Unknown, Verified 02/15/24 08:51) RASH oxycodone [Percocet] Allergy (Unknown, Verified 02/15/24 08:51) rash Do you need a note to return to daycare/school/sports/work: Yes HPI EP RT foot swelling/injury HPI Details This is a 53 year old female patient who presents to the walk in clinic today for right foot pain. She states that she was sitting in a chair last night with her right leg tucked underneath her buttock. When she got up to stand, her foot was asleep, and when she applied weight onto that foot, her foot gave out and she rolled foot on its' lateral side. She immediately had pain and swelling. She did not hear a crack/pop sound. She is able to bear weight at this time however with pain. She took a Tylenol last night with minimum relief. She has been applying an ice pack intermittently. 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 Plantar fasciitis, left Surgical History Hx of colonoscopy Family History Father Substance use disorder Sister Mental health disorder Social History Housing: House Alcohol intake: current Alcohol intake frequency: holidays/special occasions only Alcohol type: beer and wine Patient Tobacco Use Status: Former Tobacco user Years Smoked: 6 yrs e-Cigarette/Vaping Use: Never Used Second Hand Smoke Exposure: No Substance Use Type: Marijuana service: No Current occupational status: employed Cognitive needs: No Hearing needs: No Vision needs: No Review of Systems Const All systems reviewed & are unremarkable except as noted in HPI and below Physical Exam Vital Signs: Last Vital Signs Temp 98.1 F 02/15/24 08:49 Pulse 65 02/15/24 08:49 BP 110/80 02/15/24 08:49 Pulse Ox 97 02/15/24 08:49 Oxygen Delivery Method Room Air 02/15/24 08:49 BMI result Body Mass Index 22.7 Const General: cooperative Resp Effort & Inspection: normal respiratory effort Auscultation: clear to auscultation bilaterally Cardio Rate: regular rate Rhythm: regular rhythm Extrem Right lower extremity: ankle Details: normal to inspection, no edema and normal ROM and foot Details: normal capillary refill, abnormal to inspection (bruising dorsal/lateral aspect of foot), tenderness Location: of the dorsal foot Location: laterally, toes with normal ROM, no edema and vascular exam Details: dorsalis pedis pulse present, posterior tibial pulse present and normal capillary refill Psych Appearance: grossly normal Mental Status: mental status grossly normal Speech and movement: Normal speech and movement present Assessment & Plan Assessment & Plan (1) Acute pain of right foot: Code(s): M79.671 - Pain in right foot Plan: Fractured right fifth metatarsal base on XR. Patient fitted for aircast in the office and we reviewed use of this. We discussed management of pain, as she has significant pain at rest and with any weight bearing. She cannot take NSAIDs due to GI issues. I advised she continue to utilize Tylenol, and I prescribed her a short course of Tramadol for prn use when conservative interventions do not alleviate pain to a reasonable degree. We reviewed indications for use, risks, possible s/e of medications. Advised ice and elevation when not in boot. Ortho referral placed for [facility] [place], which patient is aware of. She will await call for appt. (2) Fracture of metatarsal bone of right foot: Code(s): S92.301A - Fracture of unspecified metatarsal bone(s), right foot, initial encounter for closed fracture Qualifiers: Encounter type: initial encounter Fracture alignment: nondisplaced Fracture type: closed Metatarsal bone: fifth Qualified Code(s): S92.354A - Nondisplaced fracture of fifth metatarsal bone, right foot, initial encounter for closed fracture Plan: Ortho rferral. Orders: Orders XR foot RT 2V Today M79.671 - Pain in right foot Referrals Orthopedics Referral S92.354A - Nondisplaced fracture of fifth metatarsal bone, right foot, initial encounter for closed fracture Medications: New tramadol 50 mg PO BID 5 days PRN 10 tabs 0RF pain, severe M79.671 - Pain in right foot, S92.901A - Unspecified fracture of right foot, initial encounter for closed fracture Coding Level of Care Code Est Pt Level 4 (80184) Diagnoses Acute pain of right foot M79.671 Closed nondisplaced fracture of fifth metatarsal bone of right foot, initial encounter S92.354A Encounter type: initial encounter Fracture alignment: nondisplaced Fracture type: closed Metatarsal bone: fifth
== END 2024-02-15 09:48 | disposition home or self-care (01) ==
PROVIDERS: PCP Internal Medicine; Visit Provider Nurse Practitioner Family
DX: M79.671 Pain in right foot (principal); S92.354A Nondisplaced fracture of fifth metatarsal bone, right foot, initial encounter for closed fracture
CPT/HCPCS: 99214

== ENCOUNTER 2024-02-15 09:06 | Outpatient (REF) | payer OTHER, SELFPAY ==
--- NOTE | ~2024-02-15 | XR_ITS ---
EXAMINATION: XR FOOT, RIGHT CLINICAL INFORMATION: Right lateral dorsal injury/soft tissue swelling COMPARISON: None available. TECHNIQUE: AP, lateral, and oblique views of the right foot. FINDINGS: Arrow points to the lateral aspect of the foot where nondisplaced transverse fracture of the fifth metatarsal base is seen. Hallux valgus deformity and bony/soft tissue prominence first metatarsal head identified. Alignment and articulations are maintained. XR/XR foot RT 2V IMPRESSION: Fractured right fifth metatarsal base.
== END 2024-02-15 09:07 | disposition home or self-care (01) ==
LOC: HO.HMGCX 09:06
PROVIDERS: PCP Internal Medicine; Visit Provider Nurse Practitioner Family
DX: S92.354A Nondisplaced fracture of fifth metatarsal bone, right foot, initial encounter for closed fracture (principal)
CPT/HCPCS: 73620

== ENCOUNTER 2024-03-02 08:37 | Outpatient (REF) | payer OTHER, SELFPAY ==
--- NOTE | ~2024-03-02 | XR_ITS ---
EXAMINATION: XR FOOT, RIGHT CLINICAL INFORMATION: Pain in unspecified foot Splint/boot off COMPARISON: None available. TECHNIQUE: AP, lateral, and oblique views of the right foot. FINDINGS: There is no change in position or alignment of the nondisplaced transverse fracture of the base of the fifth metatarsal. Hallux valgus deformity and bony/soft tissue prominence first metatarsal head is again identified. Associated soft tissue swelling is seen. XR/XR foot RT min 3V IMPRESSION: No change in nondisplaced transverse fracture of the base of the fifth metatarsal.
== END 2024-03-02 08:38 | disposition home or self-care (01) ==
LOC: HO.HOSX 08:37
PROVIDERS: Visit Provider Physician Assistant
DX: M79.671 Pain in right foot (principal)
CPT/HCPCS: 73630

== ENCOUNTER 2024-03-02 10:29 | Outpatient (AMB) | payer OTHER, SELFPAY ==
--- NOTE | 2024-03-02 10:46 | A.OFFVIS_ITS ---
Vital Signs 03/02/24 10:53 Height 5 ft Weight 116 lb BMI 22.7 Intake Visit Reasons: FC - Right Foot 5th MT Fx 02/15/24 Intake Note: Binta is a 53 year old female who presents today for a evaluation of her right foot 5th MT fx 02/15/24. Patient reports she was sitting down with her right foot crossed and she has to get up quick and stepped on her right foot which feel asleep. Patient had stepped on her right foot quick and greg a snap. Patient expresses she feels a bit sore. Patient has tried Tramodol w/ Tylenol with mild relief. Allergies codeine [CODEINE] Allergy (Unknown, Verified 03/02/24 10:48) RASH oxycodone [Percocet] Allergy (Unknown, Verified 03/02/24 10:48) rash HPI HPI FC - Right Foot 5th MT Fx 02/15/24: Details: 53-year-old female who presents in the office today, as a new patient, for an evaluation of right foot pain. Patient [facility] on 02/[facility]2024 status post one day of pain (since 02/14/2024). Patient reported she was sitting in a chair last night with her right leg tucked underneath her buttock. When she got up to stand, her foot was asleep, and when she applied weight onto that foot, her foot gave out and she rolled the foot on the lateral side. X-rays were obtained. She was placed in an Air Cast. She was prescribed Tramadol 50 mg PO BID PRN for pain with 10 tablets. Patient reports she stepped on her right foot quickly and felt a snap. She reports feeling a bit sore. She has tried Tramadol with Tylenol with mild relief. Patient is unable to take NSAIDs due to GI upset. 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 Plantar fasciitis, left Surgical History Hx of colonoscopy Family History Father Substance use disorder Sister Mental health disorder Social History Housing: House Alcohol intake: current Alcohol intake frequency: holidays/special occasions only Alcohol type: beer and wine Patient Tobacco Use Status: Former Tobacco user Years Smoked: 6 yrs e-Cigarette/Vaping Use: Never Used Second Hand Smoke Exposure: No Substance Use Type: Marijuana service: No Current occupational status: employed Cognitive needs: No Hearing needs: No Vision needs: No Review of Systems Const All systems reviewed & are unremarkable except as noted in HPI and below Physical Exam Vital Signs: BMI result Body Mass Index 22.7 Const General: cooperative and no acute distress Orientation/consciousness: patient oriented x3 Resp Effort & Inspection: normal respiratory effort and able to speak in complete sentences Cardio Peripheral pulses: Peripheral pulses 2+ throughout Skin General skin exam: no rashes or lesions noted Neuro General: patient oriented x3 Extrem Other: Right foot: Moderate amount of edema at the base of the 5th metatarsal over the fracture site accompanied by tenderness to palpation. Able to dorsiflex and plantarflex, pronate and supinate without much difficulty. Sensation intact. Pedal pulse intact. Office Procedures Fracture Care Fracture Billing Code: Fracture Billing Code Assessment & Plan Assessment & Plan (1) Fracture of metatarsal of right foot, closed: Code(s): S92.301A - Fracture of unspecified metatarsal bone(s), right foot, initial encounter for closed fracture Category: Medical Qualifiers: Encounter type: initial encounter Fracture alignment: nondisplaced Metatarsal bone: fifth Qualified Code(s): S92.354A - Nondisplaced fracture of fifth metatarsal bone, right foot, initial encounter for closed fracture Plan Ms. Godoy is a 53-year-old female who presents in the office today, as a new patient, for an evaluation of right foot pain. Patient presented to [facility] on 02/15/2024 status post one day of pain (since 02/14/2024). Patient reported she was sitting in a chair last night with her right leg tucked underneath her buttock. When she got up to stand, her foot was asleep, and when she applied weight onto that foot, her foot gave out and she rolled the foot on the lateral side. X-rays were obtained. She was placed in an Air Cast. She was prescribed Tramadol 50 mg PO BID PRN for pain with 10 tablets. Patient reports she stepped on her right foot quickly and felt a snap. She reports feeling a bit sore. She has tried Tramadol with Tylenol with mild relief. Patient is unable to take NSAIDs due to GI upset. Patient has been wearing a short walking boot. However, the Velcro is coming loose from the boot and is interfering with the proper fit. I recommend refitting the patient and listing the current boot as defective. I did recommend taking anti-inflammtories. She is currently taking Tramadol and Tylenol. She requested a refill of Tramadol, however, at 2 weeks status post injury I have declined to do so at this time. She has a planned trip to [place] on 03/28/2024. I recommend if she proceeds with the trip that she wears the boot with ambulation. Follow-up will be after her trip with repeat x-rays, or sooner if n eeded. X-rays of the right foot which were obtained while in the office today and were reviewed by me, Lynn Zhang PA-C, redemonstrates 5th metatarsal fracture. X-rays of the right foot, obtained on 02/15/2024, revealed: Arrow points to the lateral aspect of the foot where nondisplaced transverse fracture of the fifth metatarsal base is seen. Hallux valgus deformity and bony/soft tissue prominence first metatarsal head identified. Alignment and articulations are maintained. Orders: Orders XR foot RT min 3V Today M79.673 - Pain in unspecified foot Patient Instructions: Scribed by Cecelia Ortega medical bill processor, for Lynn Zhang PA-C on 03/02/2024 at 10:32 am, EST. Coding Level of Care Code New Pt Level 4 (77986) Diagnoses Closed nondisplaced fracture of fifth metatarsal bone of right foot, initial encounter S92.354A Encounter type: initial encounter Fracture alignment: nondisplaced Metatarsal bone: fifth CPT Codes Fracture Care - Fracture Billing Code: Fracture Billing Code ([id number])
[2024-03-02 10:53] VITALS: BMI 22.7
== END 2024-03-02 11:27 | disposition home or self-care (01) ==
PROVIDERS: PCP Internal Medicine; Visit Provider Physician Assistant
DX: S92.354A Nondisplaced fracture of fifth metatarsal bone, right foot, initial encounter for closed fracture (principal)
CPT/HCPCS: 99203

== ENCOUNTER 2024-04-06 08:30 | Outpatient (REF) | payer OTHER, SELFPAY ==
--- NOTE | ~2024-04-06 | XR_ITS ---
EXAMINATION: XR FOOT, RIGHT CLINICAL INFORMATION: Pain in unspecified foot. COMPARISON: March 02, 2024. TECHNIQUE: AP, lateral, and oblique views of the right foot. FINDINGS: Redemonstration of nondisplaced transverse fracture of the base of the fifth metatarsal. Stable alignment. There has been some interval bridging callus formation. Fracture line is still visible. Hallux valgus deformity with mild degenerative changes in the first metatarsophalangeal joint. XR/XR foot RT min 3V IMPRESSION: Redemonstration of nondisplaced transverse fracture of the base of the fifth metatarsal. Stable alignment. There has been some interval bridging callus formation. Fracture line is still visible.
== END 2024-04-06 08:31 | disposition home or self-care (01) ==
LOC: HO.HOSX 08:30
PROVIDERS: Visit Provider Physician Assistant
DX: M79.671 Pain in right foot (principal)
CPT/HCPCS: 73630

== ENCOUNTER 2024-04-06 09:24 | Outpatient (AMB) | payer OTHER, SELFPAY ==
--- NOTE | 2024-04-06 09:53 | MHC.OFFVIS ---
Intake Visit Reasons: OV- Right Foot 5th MT Fx 02/15/24 Intake Note: Binta is a 53 year old female who presents today for a follow up of her right foot 5th MT fx 02/15/24. Patient reports she is feel soreness on the lateral aspect of her right foot and it radiates up to her ankle. She notices having some swelling and it usually swells up at night. Allergies codeine [CODEINE] Allergy (Unknown, Verified 04/06/24 09:55) RASH oxycodone [Percocet] Allergy (Unknown, Verified 04/06/24 09:55) rash HPI HPI OV- Right Foot 5th MT Fx 02/15/24: Details: 53-year-old female who presents in the office today for a follow-up of a right foot fifth metatarsal fracture, which occurred on 02/14/2024 status post rolling her right ankle upon standing. I last saw the patient in the office on 03/02/2024 when she was refitted for a short walking boot. She was also encouraged to take OTC anti-inflammatory medication for pain relief. While in the office today the patient reports soreness on the lateral aspect of the right foot that radiates to her right ankle. She also reports some edema, which is more noticeable at night. Patient is currently working from home due to being unable to drive. 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 Plantar fasciitis, left Surgical History Hx of colonoscopy Family History Father Substance use disorder Sister Mental health disorder Social History Housing: House Alcohol intake: current Alcohol intake frequency: holidays/special occasions only Alcohol type: beer and wine Patient Tobacco Use Status: Former Tobacco user Years Smoked: 6 yrs e-Cigarette/Vaping Use: Never Used Second Hand Smoke Exposure: No Substance Use Type: Marijuana service: No Current occupational status: employed Cognitive needs: No Hearing needs: No Vision needs: No Review of Systems Const All systems reviewed & are unremarkable except as noted in HPI and below Physical Exam Const General: cooperative and no acute distress Orientation/consciousness: patient oriented x3 Resp Effort & Inspection: normal respiratory effort and able to speak in complete sentences Cardio Peripheral pulses: Peripheral pulses 2+ throughout Skin General skin exam: no rashes or lesions noted Neuro General: patient oriented x3 Extrem Other: Right foot: Mild edema at the 5th metatarsal over the fracture site accompanied by tenderness to palpation. Able to dorsiflex and plantarflex, pronate and supinate without much difficulty. Sensation intact. Pedal pulse intact. Assessment & Plan Assessment & Plan (1) Fracture of metatarsal of right foot, closed: Code(s): S92.301A - Fracture of unspecified metatarsal bone(s), right foot, initial encounter for closed fracture Category: Medical Qualifiers: Encounter type: initial encounter Metatarsal bone: fifth Fracture alignment: nondisplaced Qualified Code(s): S92.354A - Nondisplaced fracture of fifth metatarsal bone, right foot, initial encounter for closed fracture Plan Ms. Godoy is a 53-year-old female who presents in the office today for a follow-up of a right foot fifth metatarsal fracture, which occurred on 02/14/2024 status post rolling her right ankle upon standing. I last saw the patient in the office on 03/02/2024 when she was refitted for a short walking boot. She was also encouraged to take OTC anti-inflammatory medication for pain relief. While in the office today the patient reports soreness on the lateral aspect of the right foot that radiates to her right ankle. She also reports some edema, which is more noticeable at night. Patient is currently working from home due to being unable to drive. The patient will be referred to physical therapy to work on gentle painless ROM. I would like for the patient to begin to wean out of the walking boot and into a supportive sneaker. Physical therapy will also work with her on this transition. At this time the patient is still unable to drive, therefore, the patient was given a work note stating this and that it is recommended for her to remain working from home until her follow-up. We also discussed that she would remain unable to drive until she is weaned out of the boot and into a supportive sneaker without pain. Follow-up will be in 4-6 weeks with x-rays, or sooner if needed. X-rays of the right foot which were obtained while in the office today and were reviewed by me, Lynn Zhang PA-C, revealed routine healing of a right fifth metatarsal fracture. Orders: Orders XR foot RT min 3V Today M79.673 - Pain in unspecified foot Patient Instructions: Scribed by Cecelia Ortega rn medical inpatient services, for Lynn Zhang PA-C on 04/06/2024 at 9:28 am, EST. Coding Level of Care Code Global (43145) Diagnoses Closed nondisplaced fracture of fifth metatarsal bone of right foot, initial encounter S92.354A Encounter type: initial encounter Metatarsal bone: fifth Fracture alignment: nondisplaced
== END 2024-04-06 10:34 | disposition home or self-care (01) ==
PROVIDERS: PCP Internal Medicine; Visit Provider Physician Assistant
DX: S92.354A Nondisplaced fracture of fifth metatarsal bone, right foot, initial encounter for closed fracture (principal)
CPT/HCPCS: 99213

== ENCOUNTER 2024-05-18 08:30 | Outpatient (REF) | payer OTHER, SELFPAY ==
--- NOTE | ~2024-05-18 | XR_ITS ---
EXAMINATION: XR FOOT, RIGHT CLINICAL INFORMATION: Right foot pain. COMPARISON: 04/06/2024 TECHNIQUE: AP, lateral, and oblique views of the right foot. FINDINGS: Progressive osseous bridging is noted at the nondisplaced transverse fracture through the fifth metatarsal base. No new fractures. Mild hallux valgus with mild osteoarthritis in the first MTP joint. Mild multifocal osteoarthritis is present in the DIP joints. Midfoot joints appear relatively well-preserved. XR/XR foot RT min 3V IMPRESSION: Progressive healing of the nondisplaced fifth metatarsal base fracture.
== END 2024-05-18 08:31 | disposition home or self-care (01) ==
LOC: HO.HOSX 08:30
PROVIDERS: Visit Provider Physician Assistant
DX: M79.671 Pain in right foot (principal)
CPT/HCPCS: 73630

== ENCOUNTER 2024-05-18 08:43 | Outpatient (AMB) | payer OTHER, SELFPAY ==
--- NOTE | 2024-05-18 08:58 | MHC.OFFVIS ---
Vital Signs 05/18/24 09:00 Height 5 ft Weight 112 lb BMI 21.9 Intake Visit Reasons: OV- Right Foot 5th MT Fx 02/15/24 Intake Note: Binta is a 53 year old female who presents today for a follow up of her right foot 5th MT fx 02/15/24. Patient reports she has not been driving but has been doing more walking to get her foot back to feeling normal. She says PT never called her and she does not know who to call but she prefers not to do PT due to concerns of missing too much work. She expresses her last 3 toes are sore and she has sharp throbbing pains on the lateral aspect of her foot when she ambulates. Her concern is if this pain/discomfort will be a permanent thing. Allergies codeine [CODEINE] Allergy (Unknown, Verified 05/18/24 09:01) RASH oxycodone [Percocet] Allergy (Unknown, Verified 05/18/24 09:01) rash HPI HPI OV- Right Foot 5th MT Fx 02/15/24: Details: 53-year-old female who presents in the office today for a follow-up of a right foot fifth metatarsal fracture, which occurred on 02/14/2024 status post rolling her right ankle upon standing. I last saw the patient in the office on 04/06/2024 when she was referred to PT and to begin to wean out of the boot. 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 ? ? While in the office today, the patient reports she has not been driving. She confirms ambulating more often to ?get the foot feeling back to normal?. She claims to have pain in the third, fourth, and fifth toes. She describes her pain as sharp along the lateral aspect of the right foot when ambulating. She expresses a concern that the pain and discomfort will be permanent. ? ? The patient reports physical therapy never called her and she did not know who to call. However, the patient prefers to not attend physical therapy due to missing too much work and the potential of a copay. ? The patient weaned herself out of the boot into a supportive sneaker. ? 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 Plantar fasciitis, left Surgical History Hx of colonoscopy Family History Father Substance use disorder Sister Mental health disorder Social History Housing: House Alcohol intake: current Alcohol intake frequency: holidays/special occasions only Alcohol type: beer and wine Patient Tobacco Use Status: Former Tobacco user Years Smoked: 6 yrs e-Cigarette/Vaping Use: Never Used Second Hand Smoke Exposure: No Substance Use Type: Marijuana service: No Current occupational status: employed Cognitive needs: No Hearing needs: No Vision needs: No Review of Systems Const All systems reviewed & are unremarkable except as noted in HPI and below Physical Exam Vital Signs: BMI result Body Mass Index 21.9 Const General: cooperative, healthy appearing and no acute distress Resp Effort & Inspection: normal respiratory effort and able to speak in complete sentences Cardio Rate: regular rate Peripheral pulses: Peripheral pulses 2+ throughout GI Palpation (GI): Soft to palpation Skin Lesions: no lesions Rashes: no rashes Extrem Other: Right foot: Normal to inspection. No ecchymosis, erythema, or edema. Hypersensitivity over the base of the fifth metatarsal at the fracture site. Able to fully dorsiflexion and plantarflexion. Limited with pronation and supination due to pain. Ambulates with an antalgic gait. She tends to pronate her right foot when ambulating. NVI.? Assessment & Plan Assessment & Plan (1) Fracture of metatarsal of right foot, closed: Code(s): S92.301A - Fracture of unspecified metatarsal bone(s), right foot, initial encounter for closed fracture Category: Medical Qualifiers: Encounter type: initial encounter Fracture alignment: nondisplaced Metatarsal bone: fifth Qualified Code(s): S92.354A - Nondisplaced fracture of fifth metatarsal bone, right foot, initial encounter for closed fracture Plan Ms. Godoy is a 53-year-old female who presents in the office today for a follow-up of a right foot fifth metatarsal fracture, which occurred on 02/14/2024 status post rolling her right ankle upon standing. I last saw the patient in the office on 04/06/2024 when she was referred to PT and to begin to wean out of the boot. 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 ? ? While in the office today, the patient reports she has not been driving. She confirms ambulating more often to ?get the foot feeling back to normal?. She claims to have pain in the third, fourth, and fifth toes. She describes her pain as sharp along the lateral aspect of the right foot when ambulating. She expresses a concern that the pain and discomfort will be permanent. ? ? The patient reports physical therapy never called her and she did not know who to call. However, the patient prefers to not attend physical therapy due to missing too much work and the potential of a copay. ? The patient weaned herself out of the boot into a supportive sneaker.? ? We discussed the role of formal physical therapy. She expresses a concern that there is a copay that would inhibit her from attending any formal sessions. We have agreed on a plan to attend one to two sessions with an instruction of a home exercise program. A referral was made in the office today. She did want to discuss if there were any surgical intervention options for her situation. However, I do not believe that is appropriate at this time. I strongly recommend for the patient to attend physical therapy. Follow-up will be in four weeks via telehealth, or sooner if needed. ? ? X-rays of the right foot which were obtained while in the office today and were reviewed by me, Lynn Zhang PA-C, revealed healed base of the fifth metatarsal fracture on the right foot. ? Orders: Orders XR foot RT min 3V Today M79.673 - Pain in unspecified foot PT Evaluation and Treatment Today S92.354A - Nondisplaced fracture of fifth metatarsal bone, right foot, initial encounter for closed fracture Patient Instructions: Scribed by Cecelia Ortega biomedical engineering technologist, for Lynn Zhang PA-C on 05/18/2024 at 9:09 am, EST.? Coding Level of Care Code Est Pt Level 3 (85399) Diagnoses Closed nondisplaced fracture of fifth metatarsal bone of right foot, initial encounter S92.354A Encounter type: initial encounter Fracture alignment: nondisplaced Metatarsal bone: fifth
[2024-05-18 09:00] VITALS: BMI 21.9
== END 2024-05-18 09:32 | disposition home or self-care (01) ==
PROVIDERS: PCP Internal Medicine; Visit Provider Physician Assistant
DX: S92.354A Nondisplaced fracture of fifth metatarsal bone, right foot, initial encounter for closed fracture (principal)
CPT/HCPCS: 99213

== ENCOUNTER 2024-06-26 07:12 | Outpatient (REF) | payer OTHER, SELFPAY ==
[2024-06-26 10:55] LABS: Alanine Aminotransferase 16 U/L (0-31); Alkaline Phosphatase 43 U/L (39-117); Aspartate Amino Transferase 22 U/L (5-31); Bilirubin Direct 0.2 mg/dL (0.0-0.5); Bilirubin Total 0.7 mg/dL (0.0-1.0); Total Protein 6.7 g/dL (6.5-8.0)
[2024-06-29 00:27] LABS: TS Negative Control Passed; TS Panel A 0; TS Panel B 0; TS Positive Control Passed; TSpotTB Negative (Negative)
== END 2024-06-26 07:13 | disposition home or self-care (01) ==
LOC: HO.HMGCLDS 07:12
PROVIDERS: PCP Internal Medicine; Visit Provider Nurse Practitioner Family
DX: R74.01 Elevation of levels of liver transaminase levels (principal); K52.9 Noninfective gastroenteritis and colitis, unspecified
CPT/HCPCS: 36415; 80076; 86481

== ENCOUNTER 2024-07-03 08:06 | Outpatient (AMB) | payer OTHER, SELFPAY ==
[2024-07-03 08:13] VITALS: BP 110/80; PULSE 58; O2SAT 98; BMI 22.8
--- NOTE | 2024-07-03 08:13 | A.OFFPC_ITS ---
Vital Signs 07/03/24 08:13 Height 5 ft Weight 117 lb BMI 22.8 BP 110/80 Blood Pressure Location Lt brachial Position Sitting Pulse 58 Pulse Source Pulse Oximeter Pulse Oximetry (%) 98 Oxygen Delivery Method Room Air Intake Visit Reasons: PE Intake Note: Pt is here today for her PE: last mammogram 07/30/23, colonoscopy 01/03/23 Allergies codeine [CODEINE] Allergy (Unknown, Verified 07/03/24 08:16) RASH oxycodone [Percocet] Allergy (Unknown, Verified 07/03/24 08:16) rash Medication List - Last Reconciled 07/03/24 by Delmi Ernandez MD adalimumab-adbm (Cyltezo(CF) Pen) inject one - 40 mg/0.8 mL pen every 2 weeks subcut aripiprazole (Abilify) 2 mg PO DAILY atenolol 50 mg PO DAILY hgacbrothx-ebdvwrsvnieqw-npnr 50-325-40 mg 1 tab PO Q6H PRN citalopram 20 mg PO DAILY dicyclomine 10 mg PO BID PRN lorazepam 1 mg PO DAILY PRN mesalamine (Lialda) 2.4 grams (2 x 1.2 gram) PO DAILY 30 days trazodone 100 mg PO BEDTIME PRN valacyclovir 2,000 mg (2 x 1 gram) PO Q12H PRN Tobacco use date assessed: 07/03/24 Dental Screening Dental Screen Date: 07/03/24 Did you have a dental visit in the last 12 months?: No Did you have a dental problem in the last 6 months where you did not have access to dental care?: No Was dental information given to patient?: Patient declined HPI PE HPI Details 53-year-old lady with past medical histo ry significant for left-sided ulcerative colitis, history of migraine headache, anxiety depression, recurrent cold sores , hypertension and impaired fasting glucose, here today for physical exam. She is due for her screening mammogram this month, up-to-date with her screening colonoscopy done in [address] Barbour which showed presence of diverticulosis and left-sided colitis. She goes to [facility] for routine Pap and pelvic exam, states that last done in 2020 with benign findings. Patient also had Mirena IUD placed there. Currently sees Psychiatry for her anxiety depression which is stable controlled present treatment. 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 Plantar fasciitis, left Surgical History Hx of colonoscopy Family History Father Substance use disorder Sister Mental health disorder Social History Housing: House Alcohol intake: current Alcohol intake frequency: holidays/special occasions only Alcohol type: beer and wine Patient Tobacco Use Status: Former Tobacco user Years Smoked: 6 yrs e-Cigarette/Vaping Use: Never Used Second Hand Smoke Exposure: No Substance Use Type: Marijuana service: No Current occupational status: employed Cognitive needs: No Hearing needs: No Vision needs: No Questionnaire PHQ-9 Over the last 2 weeks, how often have you been bothered by any of the following problems? 1. Little interest or pleasure in doing things: several days 2. Feeling down, depressed, or hopeless: several days 3. Trouble falling or staying asleep, or sleeping too much: several days 4. Feeling tired or having little energy: several days 5. Poor appetite or overeating: several days 6. Feeling bad about yourself - or that you are a failure or have let yourself or your family down: not at all 7. Trouble concentrating on things, such as reading the newspaper or watching television: several days 8. Moving or speaking so slowly that other people could have noticed. Or the opposite - being so fidgety or restless that you have been moving around a lot more than usual: not at all 9. Thoughts that you would be better off or of hurting yourself in some way: not at all Total score: 6 Depression Screening Interpretation: Positive (Currently being followed by Silvia Coulter , on citalopram, Abilify, trazodone and lorazepam as needed) Depression Screening Follow-up: Existing condition, In treatment and Community Mental Health Worker F/U Depression Screening Done: Yes 54888 - PHQ-9 Billing: Yes Source: Developed by Drs. Rolf Latif, Shyann Mena, Lorenzo Burton and colleagues, with an educational miguel from [employer]. Thrive Questionnaire Date Thrive assessed: 07/03/24 I am a: Patient What is your living situation today?: I have a steady place to live Within the past 12 months, did the food you bought not last and you didn't have the money to get more?: Never true Within the past 12 months, did you worry whether your food would run out before you got money to buy more?: Never true Do you have trouble paying for medicines?: No Do you have trouble getting transportation to medical appointments?: No Do you have trouble paying your heating and electricity bill?: No Do you have trouble taking care of your child, family member or friend?: No Do you have trouble with day-to-day activities such as bathing, preparing meals, shopping, managing finances, etc.?: No Are you currently unemployed and looking for a job?: No Are you interested in more education?: I choose not to answer this question Please select the resources that you would like help with: None Currently or been in a relationship where the following occur: No concerns reported THRIVE Score: 0 AUDIT C Alcohol Use Questionnaire (AUDIT-C) 1. How often do you have a drink containing alcohol?: 2-4 times a month 2. How many drinks containing alcohol do you have on a typical day when you are drinking?: 1 or 2 3. How often do you have six or more drinks on one occasion?: Less than monthly Total Score: 3 CLAYTON-7 AMB Questionnaire CLAYTON-7 Date CLAYTON - 7 assessed: 07/03/24 Feeling nervous, anxious, or on edge: 2 = More than half the days Not being able to stop or control worryin = More than half the days Worrying too much about different things: 2 = More than half the days Trouble relaxin = Several days Being so restless that it is hard to sit still: 1 = Several days Becoming easily annoyed or irritable: 1 = Several days Feeling afraid as if something awful might happen: 1 = Several days Total CLAYTON-7 score (0-4 normal; 5-9 mild; 10-14 moderate; 15-21 severe): 10 Source: Developed by Drs. Rolf Latif, Shyann Mena, Lorenzo Burton and colleagues, with an educational miguel from [employer]. CLAYTON-7 Assessment Billing CLAYTON-7 Assessment Tool: CLAYTON-7 Assessment 27993 Review of Systems Const Reports fatigue, Reports headache(s) (Occasional migraine headaches), Denies malaise, Reports poor appetite and Reports weight loss Eyes Reports blurry vision (With reading, overdue for eye exam) ENT Reports Normal hearing present, Denies dysphagia, Denies dizziness, Reports headache(s) (Occasional migraine headaches) and Denies disequilibrium Card Denies chest pain, Denies chest pain with activity, Denies rapid heart rate, Denies irregular heart rhythm and Denies lightheadedness Resp Reports no additional complaints GI Denies melena, Reports bloating, Reports change in stool character (Fasting mucoid stool), Denies GI cramping, Denies dysphagia, Denies excessive flatus, Denies dyspepsia, Denies heartburn, Denies fecal incontinence, Denies diarrhea, Denies loose stools and Denies nausea Reports no additional complaints Musc Denies arthralgias and Reports stiffness Skin/Breast Denies breast pain, Denies breast mass, Denies lesions and Denies rash Neuro Reports no additional complaints, Reports Normal hearing present, Denies Abnormal speech present, Denies dizziness, Reports headache(s) (Occasional migraine headaches), Denies seizure-like activity, Denies Sensory deficit (Neuro), Denies paresthesias and Denies disequilibrium Psych Reports no additional complaints Endo Reports no additional complaints and Reports fatigue Virgil/Lymph Denies easy bleeding and Denies easy bruising Aller/Immun Reports no additional complaints Physical exam (Primary Care) BMI result Body Mass Index 22.8 Tobacco/Smoking Status: Tobacco use Status Tobacco use date assessed 06/22/22 06/29/24 08:52 Patient Tobacco Use Status Former Tobacco user 06/29/24 08:52 e-Cigarette/Vaping Use Never Used 06/29/24 08:52 Depression Screening Interpretation: Positive (Currently being followed by Silvia Coulter , on citalopram, Abilify, trazodone and lorazepam as needed) Depression Screening Follow-up: Existing condition, In treatment and Community Mental Health Worker F/U Thrive Assessment: Date of Thrive Assessment Date Thrive assessed 06/23/23 06/29/24 08:52 Currently or been in a relationship where the following occur: No concerns reported Const General: cooperative, comfortable, no acute distress and alert Nutritional Appearance: average body habitus Orientation/consciousness: patient oriented x3 HENMT Ears: hearing grossly normal bilaterally, TM's normal bilaterally and EAC's normal General nose exam: Normal external nose present and No nasal discharge present Face and sinus: Yes face symmetric Mouth: Normal oral and palatal mucosa present, tongue normal, oropharynx normal and moist mucous membranes Eyes General: appearance normal, both eyes and all related structures Neck Neck: Yes normal visual inspection, Yes full ROM, Yes no lymphadenopathy and Yes supple Thyroid: Thyroid normal Chest Breast/axilla inspection: normal inspection of the breasts Breast/axilla palpation: normal palpation of the breasts Resp Effort & Inspection: normal respiratory effort Auscultation: clear to auscultation bilaterally Cardio Rate: regular rate Rhythm: regular rhythm Heart sounds: S1 normal heart sound present and S2 normal heart sound present GI Palpation (GI): Soft to palpation, Tenderness to palpation present (GI) (lower abdomen) in the LLQ and in the LUQ, no guarding and no masses General: Yes no CVA tenderness and Yes deferred Back/Spine/Pelvis Back: no CVA tenderness and No back tenderness Skin General skin exam: no rashes or lesions noted Neuro General: patient oriented x3, gait normal, tone normal, Normal light touch and pain sensation, no focal motor deficits and CN's II-XI intact bilaterally Cranial nerves: Yes Normal hearing present Cognition (Neuro): normal cognition Speech: No Abnormal speech present Gait exam (Neuro): Normal gait present Sensory Exam: No Sensory deficit (Neuro) Extrem General: Yes full ROM, Yes no joint enlargement, Yes no pedal edema, Yes no calf tenderness and Yes normal gait Psych Appearance: grossly normal and well kempt Mental Status: mental status grossly normal Speech and movement: Normal speech and movement present Affect: normal affect Attitude: cooperative Thought process: Normal thought process present Thought content: Normal thought content present Results Reviewed Results Reviewed: Name: Binta Godoy Age/Sex: 53/F : 1970 Unit#: [id number] Attend Dr: Barby Ross [facility] Re06/26/24 Status: DEP [facility] SPEC : [id number] CASSIUS: 06/26/24-715 STATUS: COMP REQ : [id number] RECD: 06/26/24-[address]: Barby Ross [facility] COMP: 06/26/24-1054 ENTERED: 06/26/24-714 [facility] DR: Delmi Ernandez MD ORDERED: Liver Panel Test Result Flag Reference Total Bili 0.7 0.0-1.0 mg/dL Direct Bili 0.2 0.0-0.5 mg/dL AST (GOT) 22 5-31 U/L ALT (GPT) 16 0-31 U/L Protein, Total 6.7 6.5-8.0 g/dL Alb 4.0 3.5-5.0 g/dL Alk Phos 43 39-117 U/L Assessment and Plan Assessment & Plan (1) Annual visit for general adult medical examination with abnormal findings: Code(s): Z00.01 - Encounter for general adult medical examination with abnormal findings Plan: Will check appropriate labs. Recommended dental visit every 6 months and regular eye exams, at least every 2 years, patient already has an appointment for one. Take adequate calcium in diet and vitamin-D 3 at 2000 IU per cap once a day, in addition to weight-bearing exercises to help maintain good muscle tone and weight control. Instructed to do self-breast exam, and recommended to get yearly mammogram, already scheduled. Patient does not want to get any vaccinations.. (2) Essential hypertension: Code(s): I10 - Essential (primary) hypertension (3) Impaired fasting glucose: Code(s): R73.01 - Impaired fasting glucose (4) Anxiety and depression: Comment: Followed by psychiatry Code(s): F41.9 - Anxiety disorder, unspecified; F32.A - Depression, unspecified Plan: Currently followed by (5) Migraine headache: Code(s): G43.909 - Migraine, unspecified, not intractable, without status migrainosus Qualifiers: Migraine type: migraine (< 15 days per month) without aura Status migrainosus presence: without status migrainosus Intractability: not intractable Qualified Code(s): G43.009 - Migraine without aura, not intractable, without status migrainosus Plan: Refilled Rx for bzdypqktvq-esvbvdtzwvtmt-yovzostq, advise patient to take it only sparingly for acute migraine episodes (6) Left sided ulcerative colitis: Code(s): K51.50 - Left sided colitis without complications Qualifiers: Digestive disease complication type: without complication Qualified Co de(s): K51.50 - Left sided colitis without complications Plan: Followed by [facility], currently on Cyltezo (CF) Pen, and mesalamine, takes dicyclomine as needed. Patient states that she is due again for another repeat colonoscopy (7) Recurrent cold sores: Code(s): B00.1 - Herpesviral vesicular dermatitis Plan: Refill prescription for valacyclovir given (8) Encounter for counseling regarding advance directives: Code(s): Z71.89 - Other specified counseling Plan: Initiated the conversation about Advanced Directives. Advanced Directives help patients prepare for current and future decisions about their medical treatment and place of care. Discussed with patient that it is a process where a patients current condition and prognosis are reviewed, their wishes for information regarding their illness are elicited, and likely medical dilemmas are presented and options discussed. Healthcare proxy form completed today The form can be amended as needed, reviewed yearly and make changes as needed (9) Leukopenia: Code(s): D72.819 - Decreased white blood cell count, unspecified Qualifiers: Leukopenia type: unspecified Qualified Code(s): D72.819 - Decreased white blood cell count, unspecified Plan: Ordered a repeat CBC with differential Orders: Orders Complete Blood Count Auto Diff Today B00.1 - Herpesviral vesicular dermatitis, D72.819 - Decreased white blood cell count, unspecified, F32.A - Depression, unspecified, F41.9 - Anxiety disorder, unspecified, G43.909 - Migraine, unspecified, not intractable, without status migrainosus, I10 - Essential (primary) hypertension, K51.50 - Left sided colitis without complications, R73.01 - Impaired fasting glucose, Z00.01 - Encounter for general adult medical examination with abnormal findings, Z71.89 - Other specified counseling Lipid Panel Today B00.1 - Herpesviral vesicular dermatitis, D72.819 - Decreased white blood cell count, unspecified, F32.A - Depression, unspecified, F41.9 - Anxiety disorder, unspecified, G43.909 - Migraine, unspecified, not intractable, without status migrainosus, I10 - Essential (primary) hypertension, K51.50 - Left sided colitis without complications, R73.01 - Impaired fasting glucose, Z00.01 - Encounter for general adult medical examination with abnormal findings, Z71.89 - Other specified counseling Basic Metabolic Panel Fasting Today B00.1 - Herpesviral vesicular dermatitis, D72.819 - Decreased white blood cell count, unspecified, F32.A - Depression, unspecified, F41.9 - Anxiety disorder, unspecified, G43.909 - Migraine, unspecified, not intractable, without status migrainosus, I10 - Essential (primary) hypertension, K51.50 - Left sided colitis without complications, R73.01 - Impaired fasting glucose, Z00.01 - Encounter for general adult medical examination with abnormal findings, Z71.89 - Other specified counseling Hemoglobin A1c Today B00.1 - Herpesviral vesicular dermatitis, D72.819 - Decreased white blood cell count, unspecified, F32.A - Depression, unspecified, F41.9 - Anxiety disorder, unspecified, G43.909 - Migraine, unspecified, not intractable, without status migrainosus, I10 - Essential (primary) hypertension, K51.50 - Left sided colitis without complications, R73.01 - Impaired fasting glucose, Z00.01 - Encounter for general adult medical examination with abnormal findings, Z71.89 - Other specified counseling Vitamin D 25-OH Total Today B00.1 - Herpesviral vesicular dermatitis, D72.819 - Decreased white blood cell count, unspecified, F32.A - Depression, unspecified, F41.9 - Anxiety disorder, unspecified, G43.909 - Migraine, unspecified, not intractable, without status migrainosus, I10 - Essential (primary) hypertension, K51.50 - Left sided colitis without complications, R73.01 - Impaired fasting glucose, Z00.01 - Encounter for general adult medical examination with abnormal findings, Z71.89 - Other specified counseling Medications: Refilled valacyclovir 2,000 mg (2 x 1 gram) PO Q12H PRN 4 tabs 5RF recurrent cold sores syxaojfdqq-axgkvkovgueat-xftv 50-325-40 mg 1 tab PO Q6H PRN 20 tabs 0RF pain atenolol 50 mg PO DAILY 90 tabs 1RF Coding Level of Care Code Est Pt Prev Care 40-64y(44580) Diagnoses Annual visit for general adult medical examination with abnormal findings Z00.01 Essential hypertension I10 Impaired fasting glucose R73.01 Anxiety and depression F41.9; F32.A Migraine without aura and without status migrainosus, not intractable G43.009 Migraine type: migraine (< 15 days per month) without aura Status migrainosus presence: without status migrainosus Intractability: not intractable Left sided ulcerative colitis without complication K51.50 Digestive disease complication type: without complication Recurrent cold sores B00.1 Encounter for counseling regarding advance directives Z71.89 Leukopenia, unspecified type D72.819 Leukopenia type: unspecified Additional Codes CLAYTON-7 Assessment Billing - CLAYTON-7 Assessment Tool: CLAYTON-7 Assessment [id number] ([id number])
== END 2024-07-03 08:46 | disposition home or self-care (01) ==
PROVIDERS: PCP Internal Medicine; Visit Provider Internal Medicine
DX: Z00.00 Encounter for general adult medical examination without abnormal findings (principal); I10 Essential (primary) hypertension; K51.50 Left sided colitis without complications; R73.01 Impaired fasting glucose; F41.9 Anxiety disorder, unspecified; F32.A Depression, unspecified; G43.009 Migraine without aura, not intractable, without status migrainosus; B00.1 Herpesviral vesicular dermatitis; Z71.89 Other specified counseling; D72.819 Decreased white blood cell count, unspecified
CPT/HCPCS: 99396

== ENCOUNTER 2024-07-03 08:48 | Outpatient (REF) | payer OTHER, SELFPAY ==
[2024-07-03 10:01] LABS: MANUAL DIFF FLAG NO
[2024-07-03 10:16] LABS: Basophils Percent Auto 0.7 % (0-2); Eosinophils Absolute Auto 0.6 X10*3/uL (0.0-0.4); Eosinophils Percent Auto 9.8 % (0-4); Hematocrit 39.3 % (37.0-47.0); Hemoglobin 12.9 g/dl (12.0-16.0); Imm Gran Abs Auto 0.02 X10*3/uL (0.00-0.03); Imm Gran Pct Auto 0.4 % (0.0-0.4); Lymphocytes Absolute Auto 2.5 X10*3/uL (1.2-4.9); Lymphocytes Percent Auto 44.5 % (20-40); Mean Corpuscular HGB Conc 32.8 g/dl (31.0-35.0); Mean Corpuscular Hemoglobin 31.8 pg (27.0-33.0); Mean Corpuscular Volume 96.8 fL (80.0-98.0); Mean Platelet Volume 9.4 fL (9.4-12.3); Monocytes Absolute Auto 0.5 X10*3/uL (0.1-1.2); Monocytes Percent Auto 8.5 % (2-11); Neutrophils Percent Auto 36.1 % (45-73); Platelet Count 305 X10*3/uL (160-400); Red Blood Count 4.06 X10*6/uL (4.20-5.50); Red Cell Distribution Width 12.2 % (11.0-16.0); White Blood Count 5.6 X10*3/uL (4.8-10.8)
[2024-07-03 10:26] LABS: Anion Gap 13 (12-20); Blood Urea Nitrogen 10 mg/dL (9-16); Calcium 9.8 mg/dL (8.4-10.2); Carbon Dioxide 25 mmol/L (22-29); Chloride 105 mmol/L (96-108); Cholesterol 207 mg/dL (<200); Estimated Glomerular Filt Rate > 60; Glucose Fasting 113 mg/dL (60-99); HDL Cholesterol 74 mg/dL (>40); LDL Cholesterol Calculated 117 mg/dL (<100); Potassium 4.6 mmol/L (3.3-5.1); Sodium 138 mmol/L (135-145); Triglycerides 80 mg/dL (<150)
[2024-07-03 10:30] LABS: Estimated Average Glucose 103 mg/dL; Hemoglobin A1C 112.6797 umol/L; Hemoglobin A1c % 5.2 % (<6.0)
[2024-07-03 10:49] LABS: Vitamin D 25-OH Total 37.6 ng/mL (>30)
== END 2024-07-03 08:49 | disposition home or self-care (01) ==
LOC: HO.HMGCLDS 08:48
PROVIDERS: PCP Internal Medicine; Visit Provider Internal Medicine
DX: Z00.01 Encounter for general adult medical examination with abnormal findings (principal); D72.819 Decreased white blood cell count, unspecified; B00.1 Herpesviral vesicular dermatitis; K51.50 Left sided colitis without complications; G43.909 Migraine, unspecified, not intractable, without status migrainosus; F41.9 Anxiety disorder, unspecified; F32.A Depression, unspecified; R73.01 Impaired fasting glucose; I10 Essential (primary) hypertension; Z71.89 Other specified counseling
CPT/HCPCS: 36415; 80048; 80061; 82306; 83036; 85025

== ENCOUNTER 2024-11-20 12:21 | Outpatient (AMB) | payer OTHER, SELFPAY ==
--- NOTE | 2024-11-20 12:25 | A.OFFVIS_ITS ---
Vital Signs 11/20/24 12:26 Height 5 ft Weight 114 lb 10.246 oz BMI 22.4 BP 164/80 H Blood Pressure Location Lt brachial Position Sitting Pulse 58 Intake Visit Reasons: New sx onset. Prov req Intake Note: Binta presents in the office as a new onset symptoms. CC: She states that she is having pains on the lower right side - lower abdomen. She states that she has flare ups of diarrhea. Flare ups occur 2/3 times a week. Once she was switched to Zeposia she had passed out, broke her finger from passing out and she is not sure if this is due to the medication. It was only once and it was about 2 months ago. Clinical Biostatistician Required: No Allergies codeine [CODEINE] Allergy (Unknown, Verified 11/20/24 13:04) RASH oxycodone [Percocet] Allergy (Unknown, Verified 11/20/24 13:04) rash HPI HPI New sx onset. Prov req: Details: Left sided ulcerative colitis Abdominal pain Inflammatory bowel disease Plan Continue management with mesalamine and Cyltezo. Patient will return in 6 months for re-evaluation. Will recheck her lab work. Patient will call our office if she will have any signs and symptoms of infection, increase weakness, any respiratory symptoms. Patient is agreeable to current plan of care and verbalizes understanding of instructions. She was given the opportunity to ask questions and all questions answered. ? Thank you for allowing me to participate in her care Orders Orders Liver Panel 6 Months R74.01 T Spot TB 6 Months K52.9 Medications Refilled mesalamine (Lialda) 2.4 grams (2 x 1.2 gram) PO DAILY 30 days 60 tabs 3RF K51.50 adalimumab-adbm (Cyltezo(CF)) 160 mg (3.2 mL) subcut ONCE 2 ea 1RF K51.90 TODAY'S VISIT Patient is here today for follow-up and to discuss going for colonoscopy again. Patient reports that for the most part her symptoms are suppressed. Patient is on Zeposia and has been tolerating well. Patient also is taking mesalamine daily. Patient had 1 episode when she had left lower quadrant pain, cramping sharp patient reports that she had a syncopal episode and fell, broke her finger. Patient reports that she only had this 1 episode. Patient denies any shortness of breath, chest pain, palpitations. Denies any melena, hematochezia, unintentional weight loss or ribbon like stools. Denies dyspepsia, dysphagia or odynophagia. Patient denies any diarrhea or mucus in her stools. Reports that she is moving her bowels well. Patient denies any issues with anesthesia in the past. No history of sleep apnea. Not on any anticoagulation medication. 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 Plantar fasciitis, left Surgical History Hx of colonoscopy Family History Father Substance use disorder Sister Mental health disorder Social History Housing: House Alcohol intake: current Alcohol intake frequency: holidays/special occasions only Alcohol type: beer and wine Patient Tobacco Use Status: Former Tobacco user Years Smoked: 6 yrs e-Cigarette/Vaping Use: Never Used Second Hand Smoke Exposure: No Substance Use Type: Marijuana service: No Current occupational status: employed Cognitive needs: No Hearing needs: No Vision needs: No Review of Systems Const Denies weight gain and Denies weight loss ENT Reports no additional complaints, Denies dysphagia and Denies odynophagia Card Reports no additional complaints Resp Reports no additional complaints GI Denies abdominal pain, Denies belching, Denies melena, Reports bloating (Occasional), Denies change in bowel habits, Reports GI cramping (Occasional), Denies dysphagia, Denies excessive flatus, Denies dyspepsia, Denies heartburn, Denies diarrhea, Reports loose stools (More frequent, mucus in the stool), Denies nausea, Denies odynophagia and Denies vomiting Reports no additional complaints Musc Reports no additional complaints Neuro Reports no additional complaints Psych Reports no additional complaints Endo Reports no additional complaints Physical Exam Vital Signs: Last Vital Signs Pulse 58 11/20/24 12:26 BP 164/80 H 11/20/24 12:26 BMI result Body Mass Index 22.4 Const General: healthy appearing, no acute distress and well developed Nutritional Appearance: well nourished Orientation/consciousness: patient oriented x3 Resp Effort & Inspection: normal respiratory effort, able to speak in complete sentences, no tracheal deviation and symmetric chest movement Auscultation: clear to auscultation bilaterally Cardio Rate: regular rate GI Inspection: Yes normal to inspection and No distended Palpation (GI): Soft to palpation, not firm, nontender and No hepatosplenomegaly present Auscultation: normal bowel sounds General: Yes no CVA tenderness Back/Spine/Pelvis Back: no CVA tenderness Skin General skin exam: elasticity normal, turgor normal and dry skin Neuro General: patient oriented x3 Psych Appearance: grossly normal Mental Status: mental status grossly normal Affect: normal affect Assessment & Plan Assessment & Plan (1) Left sided ulcerative colitis: Code(s): K51.50 - Left sided colitis without complications Category: Medical Qualifiers: Digestive disease complication type: without complication Qualified Code(s): K51.50 - Left sided colitis without complications (2) Abdominal pain: Code(s): R10.9 - Unspecified abdominal pain Qualifiers: Abdominal location: lower abdomen, unspecified Qualified Code(s): R10.30 - Lower abdominal pain, unspecified (3) Inflammatory bowel disease: Code(s): K52.9 - Noninfective gastroenteritis and colitis, unspecified Plan Will check liver profile, repeat fecal calprotectin. Patient will be scheduled to go for colonoscopy. What to expect before during and after procedure discussed with patient. Stressed the importance of clear liquid diet day before procedure as well as good bowel prep. Message sent to surgical schedulers and colonoscopy will be scheduled in near future. Patient will return to the office after the procedure, will call us if she will have any concerning GI symptoms. She is agreeable to this plan and verbalizes understanding of instructions. She was given the opportunity to ask questions and all questions answered. Thank you for allowing me to participate in her care Orders: Orders Liver Panel 11/20/24 R74.01 - Elevation of levels of liver transaminase levels Calprotectin, Fecal 11/20/24 R15.9 - Full incontinence of feces Medications: New bisacodyl (Dulcolax (bisacodyl)) take 4 tabs at noon the day before your colonoscopy 20 mg (4 x 5 mg) PO ONCE 4 tabs 0RF 1 day Z12.11 - Encounter for screening for malignant neoplasm of colon polyethylene glycol 3350 (Miralax) As directed by gastroenterology [facility] at [facility] 238 grams PO ONCE 238 grams 0RF Z12.11 - Encounter for screening for malignant neoplasm of colon Refilled dicyclomine 10 mg PO BID PRN 180 caps 1RF for abdominal pain K58.9 - Irritable bowel syndrome, unspecified Coding Level of Care Code Est Pt Level 4 (18571) Complex EM visit Add On G2211 Diagnoses Left sided ulcerative colitis without complication K51.50 Digestive disease complication type: without complication Lower abdominal pain R10.30 Abdominal location: lower abdomen, unspecified Inflammatory bowel disease K52.9 Time Spent (min) 35 Comment 25 minutes spent with patient and additional 10 minutes spent reviewing her records
[2024-11-20 12:26] VITALS: BP 164/80; PULSE 58; BMI 22.4
== END 2024-11-20 14:33 | disposition home or self-care (01) ==
PROVIDERS: PCP Internal Medicine; Visit Provider Nurse Practitioner Family
DX: K51.50 Left sided colitis without complications (principal); R10.30 Lower abdominal pain, unspecified; K52.9 Noninfective gastroenteritis and colitis, unspecified
CPT/HCPCS: 99214

== ENCOUNTER → 2024-11-20 12:21 | Outpatient (BNVA) | payer OTHER, SELFPAY | PROVIDERS: PCP Internal Medicine; Visit Provider Nurse Practitioner Family ==

== ENCOUNTER 2025-02-08 09:01 | Day surgery (SDC) | payer OTHER, SELFPAY ==
[2025-02-06 13:52] VITALS: BMI 22.4
--- NOTE | 2025-02-07 09:05 | HO.ANESPROP2 ---
Documented by User: Tierra Reed NP 02/07/25 09:05 HPI - Anesthesia Eval Consult details Narrative: 54yo F for Colonoscopy PMFSH Active Problems Active Problems: All Active Problems Fracture of metatarsal of right foot, closed (Acute) Recurrent cold sores (Acute) Left sided ulcerative colitis (Acute) Migraine headache (Acute) Anxiety and depression (Acute) COVID-19 vaccine series declined (Acute) Impaired fasting glucose (Acute) Essential hypertension (Acute) Past Medical History Medical History Recurrent cold sores Migraine headache Anxiety and depression History of Clostridioides difficile colitis COVID-19 vaccine series declined Impaired fasting glucose Essential hypertension Peroneal tendinitis 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 Plantar fasciitis, left Family History Family History Father Substance use disorder Sister Mental health disorder Family history of problems with anesthesia: No Surgical History Surgical History (Updated 02/08/25 @ 09:11 by Alexandra Fernández RN) History of hernia surgery History of ankle surgery Hx of tonsillectomy Hx of appendectomy Hx of colonoscopy History of Problems with Anesthesia: No Social History Social History Housing: House Alcohol intake: current Alcohol intake frequency: holidays/special occasions only Alcohol type: beer and wine Patient Tobacco Use Status: Former Tobacco user Years Smoked: 6 yrs e-Cigarette/Vaping Use: Never Used Second Hand Smoke Exposure: No Substance Use Type: Marijuana service: No Current occupational status: employed Cognitive needs: No Hearing needs: No Vision needs: No Meds Allergies Allergy/AdvReac Type Severity Reaction Status Date / Time codeine [CODEINE] Allergy Unknown RASH Verified 11/20/24 13:04 oxycodone [Percocet] Allergy Unknown rash Verified 11/20/24 13:04 Exam Height,Weight and Vital Signs: Height 5 ft Weight 51.993 kg Assessment and Plan Assessment Anesthesia Assessment: Chart Reviewed Final Anesthetic Review Family History of Problems with Anesthesia: No History of Problems with Anesthesia: No Documented by User: Shahida Oviedo MD 02/08/25 10:10 PMF Past Medical History Medical History Recurrent cold sores Migraine headache Anxiety and depression History of Clostridioides difficile colitis COVID-19 vaccine series declined Impaired fasting glucose Essential hypertension Peroneal tendinitis 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 Plantar fasciitis, left Family History Family History Father Substance use disorder Sister Mental health disorder Surgical History Surgical History (Updated 02/08/25 @ 09:11 by Alexandra Fernández RN) History of hernia surgery History of ankle surgery Hx of tonsillectomy Hx of appendectomy Hx of colonoscopy Social History Social History Housing: House Alcohol intake: current Alcohol intake frequency: holidays/special occasions only Alcohol type: beer and wine Patient Tobacco Use Status: Former Tobacco user Years Smoked: 6 yrs e-Cigarette/Vaping Use: Never Used Second Hand Smoke Exposure: No Substance Use Type: Marijuana service: No Current occupational status: employed Cognitive needs: No Hearing needs: No Vision needs: No Meds Allergies Allergy/AdvReac Type Severity Reaction Status Date / Time codeine [CODEINE] Allergy Unknown RASH Verified 11/20/24 13:04 oxycodone [Percocet] Allergy Unknown rash Verified 11/20/24 13:04 Exam Airway Mallampati Class: II TM Dist: >3cm Neck ROM: Full Assessment and Plan Assessment Anesthesia Assessment: Anesthesia Plan Discussed Final Anesthetic Review NPO: Yes ASA Class: II Final Preanesthetic Review: No Changes in Pt Med Stat, Meds/Allgs Chart Reviewed, Consent Obtained/Reviewed and Anes Risks/Benef Reviewed Patient Risk: Intermediate Procedure Risk: Low Anesthetic Plan Anesthetic Plan: TIVA Disposition: Standard PACU
[2025-02-08 09:12] VITALS: BMI 22.7
[2025-02-08 09:22] VITALS: BP 119/65; PULSE 71; RESP 16; TEMP 36.6; O2SAT 97
[2025-02-08] MEDS: Lactated Ringers 1,000 ML 100 ML IVCONT (09:33)
--- NOTE | 2025-02-08 10:28 | MHC.SHP ---
Pre-Procedural Eval Section A - 24 Hr Update-Section A only Date of Service: 02/08/25 The patient is an INPATIENT: No The patient has been examined within 24 hours of the surgical procedure. 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 Plantar fasciitis, left) History of Previous Operations: Relevant previous surgery/procedure and date(s) (History of colonoscopy) Allergies: Allergies Allergy/AdvReac Type Severity Reaction Status Date / Time codeine [CODEINE] Allergy Unknown RASH Verified 11/20/24 13:04 oxycodone [Percocet] Allergy Unknown rash Verified 11/20/24 13:04 Review of Systems Sugical H&P ROS: Negative: Constitution, Cardiovascular, Respiratory and Gastrointestinal Exam Surgical H&P Exam: Normal: Heart, Normal: Lungs, Normal: Extremities and Normal: Abdomen Plan Diagnosis/Plan: Unchanged I have reviewed the history and physical and performed a pertinent physical examination on my patient. No changes have occurred unless specified. Time Spent With Patient Time: Total time managing care of this patient today ____ minutes.
[2025-02-08 11:11] VITALS: BP 96/55; PULSE 75; RESP 16; TEMP 36.9; O2SAT 99
--- NOTE | 2025-02-08 11:12 | P.OPN-COLO_ITS ---
Colonoscopy Operative Note Operative Note Date of Service: 02/08/25 Narrative: COLONOSCOPY TILL CECUM WITH BIOPSIES Pre-op diagnosis: Follow-up of ulcerative colitis. Post-op diagnosis:? Inactive UC, Diverticulosis, Endoscopist:? Kevin Barbour MD Anesthesia:?MAC Consent: Indications for the procedure and potential complications of bleeding, perforation, reaction to medications and missed diagnosis were discussed with the patient and informed consent was obtained. Instrument: Olympus PCF H 190 L variable stiffness pediatric colonoscope Monitoring: Vital signs and clinical assessment, intermittent blood pressure monitoring, continuous EKG monitoring, Pulse oximetry and Carbon Dioxide monitoring were done throughout the procedure. Please see anesthesia flowsheet. Colon withdrawl time was 18 minutes. Procedure: The patient was placed in the left lateral decubitis position and pre-procedure medications were administered. After a digital rectal examination of the ano-rectum, the video colonoscope was inserted into the rectum and advanced through the colon to the cecum. The colonoscope was slowly withdrawn in a retrograde panoramic fashion and the colon mucosa was carefully examined including a retroflexed view of the rectum. Findings and interventions are described below. Procedure Difficulty: without difficulty Findings: Terminal Ileum: Multiple attempts to intubate the TI were unsuccessful Cecum: Normal Ascending Colon: Normal Transverse Colon: Normal Descending Colon: Mild patchy erythema in the left colon Sigmoid Colon: Mild patchy erythema in the left colon and mild diverticulosis Rectum: Normal Ano-rectum: Normal Colon preparation: Good after some irrigation. [place] Bowel Preparation Scale Right colon; 2 Transverse colon: 2 Left colon; 2 (0 = Unprepared colon segment with mucosa not seen due to solid stool that cannot be cleared. 1 = Portion of mucosa of the colon segment seen, but other areas of the colon segment not well seen due to staining, residual stool and/or opaque liquid. 2 = Minor amount of residual staining, small fragments of stool and/or opaque liquid, but mucosa of colon segment seen well. 3 = Entire mucosa of colon segment seen well with no residual staining, small fragments of stool or opaque liquid) Impression and Post Procedure Diagnosis: Colonoscopy Findings: No polyps were detected Mild patchy erythema in the left colon - random biopsies were obtained from the rectum and right and left colon. Mild diverticulosis seen in the sigmoid colon Plan: Pt has a FU appointment on 02/22/25 with Kellie Ross NP Repeat Colonoscopy in 5 years for ulcerative colitis surveillance. Above findings were reviewed with the patient and relevant handouts were given and the discharge area.
[2025-02-08 11:26] VITALS: BP 121/59; PULSE 74; RESP 18; TEMP 36.9; O2SAT 100
== END 2025-02-08 12:05 | disposition home or self-care (01) ==
PROVIDERS: PCP Internal Medicine; Visit Provider Internal Medicine Gastroenterology
PROC: 0DJD8ZZ Inspection of Lower Intestinal Tract, Via Natural or Artificial Opening Endoscopic (ICD-10-PCS; CPT 45378; principal; 2025-02-08 10:20)
DX: K52.9 Noninfective gastroenteritis and colitis, unspecified (principal); K57.30 Diverticulosis of large intestine without perforation or abscess without bleeding; R19.4 Change in bowel habit; I10 Essential (primary) hypertension; F12.90 Cannabis use, unspecified, uncomplicated; Z87.891 Personal history of nicotine dependence; Z79.899 Other long term (current) drug therapy
CPT/HCPCS: 45380; 88305; J2003; J2704

== ENCOUNTER → 2025-02-08 09:01 | Outpatient (BNV) | payer OTHER, SELFPAY | PROVIDERS: PCP Internal Medicine; Visit Provider Internal Medicine Gastroenterology | DX: K52.9 Noninfective gastroenteritis and colitis, unspecified (principal); K57.30 Diverticulosis of large intestine without perforation or abscess without bleeding | CPT/HCPCS: 45380 ==

== ENCOUNTER 2025-02-22 13:01 | Outpatient (AMB) | payer OTHER, SELFPAY ==
--- NOTE | 2025-02-22 13:10 | A.OFFVIS_ITS ---
Vital Signs 02/22/25 13:12 Height 5 ft Weight 116 lb BMI 22.7 BP 140/74 H Blood Pressure Location Lt brachial Position Sitting Pulse 60 Pulse Source Pulse Oximeter Pulse Oximetry (%) 97 Oxygen Delivery Method Room Air Intake Visit Reasons: s/p colonoscopy Intake Note: ESTABLISHED PATIENT for mgmt of chronic abd pain + IBS. S/P [place] CC; No new sx or concerns per pt. Medical Device Sales Representative Required: No Allergies codeine [CODEINE] Allergy (Unknown, Verified 02/22/25 13:22) RASH oxycodone [Percocet] Allergy (Unknown, Verified 02/22/25 13:22) rash HPI HPI s/p colonoscopy: Details: LAST VISIT Left sided ulcerative colitis Abdominal pain Inflammatory bowel disease Plan Will check liver profile, repeat fecal calprotectin. Patient will be scheduled to go for colonoscopy. What to expect before during and after procedure discussed with patient. Stressed the importance of clear liquid diet day before procedure as well as good bowel prep. Message sent to surgical schedulers and colonoscopy will be scheduled in near future. Patient will return to the office after the procedure, will call us if she will have any concerning GI symptoms. She is agreeable to this plan and verbalizes understanding of instructions. She was given the opportunity to ask questions and all questions answered. ? Thank you for allowing me to participate in her care COLONOSCOPY Findings: Terminal Ileum: Multiple attempts to intubate the TI were unsuccessful Cecum: Normal Ascending Colon: Normal Transverse Colon: Normal Descending Colon: Mild patchy erythema in the left colon Sigmoid Colon: Mild patchy erythema in the left colon and mild diverticulosis Rectum: Normal Ano-rectum: Normal Colon preparation: Good after some irrigation. [place] Bowel Preparation Scale Right colon; 2 Transverse colon: 2 Left colon; 2 (0 = Unprepared colon segment with mucosa not seen due to solid stool that cannot be cleared. 1 = Portion of mucosa of the colon segment seen, but other areas of the colon segment not well seen due to staining, residual stool and/or opaque liquid. 2 = Minor amount of residual staining, small fragments of stool and/or opaque liquid, but mucosa of colon segment seen well. 3 = Entire mucosa of colon segment seen well with no residual staining, small fragments of stool or opaque liquid) Impression and Post Procedure Diagnosis: Colonoscopy Findings: No polyps were detected Mild patchy erythema in the left colon - random biopsies were obtained from the rectum and right and left colon. Mild diverticulosis seen in the sigmoid colon Plan: Repeat Colonoscopy in 5 years for ulcerative colitis surveillance. Above findings were reviewed with the patient and relevant handouts were given and the discharge area. Orders Orders Liver Panel 11/20/24 R74.01 Calprotectin, Fecal 11/20/24 R15.9 Medications New bisacodyl (Dulcolax (bisacodyl)) take 4 tabs at noon the day before your colonoscopy 20 mg (4 x 5 mg) PO ONCE 4 tabs 0RF 1 day Z12.11 polyethylene glycol 3350 (Miralax) As directed by gastroenterology department at [facility] 238 grams PO ONCE 238 grams 0RF Z12.11 Refilled dicyclomine 10 mg PO BID PRN 180 caps 1RF for abdominal pain K58.9 PATHOLOGY Diagnosis A. Colon, right, biopsy: Colonic mucosa with lymphoid aggregates and no specific change; no colitis, granulomas or dysplasia. B. Colon, left, biopsy: Colonic mucosa with lymphoid aggregates and no specific change; no colitis, granulomas or dysplasia. C. Colon, rectum, biopsy: Colonic mucosa with lymphoid aggregates and no specific change; no colitis, granulomas or dysplasia. TODAY'S VISIT Patient is here today for follow-up and to discuss colonoscopy results. Patient reports that she has been doing well. Denies any ill effects from the prep, anesthesia or procedure itself. Patient reports that she is no longer having abdominal pain or bloating. Patient states that her appetite is increased. Patient has 1-2 bowel movements a day. No longer has bowel movements during the night time. Sometimes patient will have immediate urge to have a bowel movement without blood or mucus in her stool. Patient reports that she has been feeling well. Reports that she has good appetite and even started to gain weight. 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 Plantar fasciitis, left Surgical History History of hernia surgery History of ankle surgery Hx of tonsillectomy Hx of appendectomy Hx of colonoscopy Family History Father Substance use disorder Sister Mental health disorder Social History Housing: House Alcohol intake: current Alcohol intake frequency: holidays/special occasions only Alcohol type: beer and wine Patient Tobacco Use Status: Former Tobacco user Years Smoked: 6 yrs e-Cigarette/Vaping Use: Never Used Second Hand Smoke Exposure: No Substance Use Type: Marijuana service: No Current occupational status: employed Cognitive needs: No Hearing needs: No Vision needs: No Physical Exam Vital Signs: BMI result Body Mass Index 22.7 Results Reviewed Results Reviewed: Laboratory Tests 06/26/24 07:16 Total Bilirubin 0.7 AST 22 ALT 16 Alkaline Phosphatase 43 Assessment & Plan Assessment & Plan (1) Left sided ulcerative colitis: Code(s): K51.50 - Left sided colitis without complications Category: Medical Qualifiers: Digestive disease complication type: without complication Qualified Code(s): K51.50 - Left sided colitis without complications (2) Abdominal pain: Code(s): R10.9 - Unspecified abdominal pain Qualifiers: Abdominal location: left lower quadrant Qualified Code(s): R10.32 - Left lower quadrant pain (3) Inflammatory bowel disease: Code(s): K52.9 - Noninfective gastroenteritis and colitis, unspecified Plan Continue Zeposia. Patient will be sent for blood work. Denies any fever or chills. Denies any shortness of breath. Patient reports to be feeling well. Follow-up in 6 months, sooner on as needed basis. Colonoscopy for surveillance of ulcerative colitis in 5 years, sooner if clinically necessary. She is agreeable to current plan of care and verbalizes understanding of instructions. She was given the opportunity to ask questions and all questions answered. Thank you for allowing me to participate in her care Orders: Orders Complete Blood Count no Diff Today K21.9 - Gastro-esophageal reflux disease without esophagitis Comprehensive Met. Panel Today K21.9 - Gastro-esophageal reflux disease without esophagitis Coding Level of Care Code Est Pt Level 4 (02877) Complex EM visit Add On G2211 Diagnoses Left sided ulcerative colitis without complication K51.50 Digestive disease complication type: without complication Left lower quadrant abdominal pain R10.32 Abdominal location: left lower quadrant Inflammatory bowel disease K52.9 Time Spent (min) 35 Comment 25 minutes spent with patient and additional 10 minutes spent reviewing her records
[2025-02-22 13:12] VITALS: BP 140/74; PULSE 60; O2SAT 97; BMI 22.7
== END 2025-02-22 13:39 | disposition home or self-care (01) ==
LOC: HO.HGI 13:02
PROVIDERS: PCP Internal Medicine; Referring Provider Internal Medicine; Visit Provider Nurse Practitioner Family
DX: K51.50 Left sided colitis without complications (principal); R10.32 Left lower quadrant pain; K52.9 Noninfective gastroenteritis and colitis, unspecified
CPT/HCPCS: 99214

== ENCOUNTER 2025-02-22 13:01 | Outpatient (REF) | payer OTHER, SELFPAY ==
[2025-02-22 14:15] LABS: Hematocrit 36.3 % (37.0-47.0); Hemoglobin 12.3 g/dl (12.0-16.0); Mean Corpuscular HGB Conc 33.9 g/dl (31.0-35.0); Mean Corpuscular Hemoglobin 32.1 pg (27.0-33.0); Mean Corpuscular Volume 94.8 fL (80.0-98.0); Mean Platelet Volume 9.2 fL (9.4-12.3); Platelet Count 281 X10*3/uL (160-400); Red Blood Count 3.83 X10*6/uL (4.20-5.50); Red Cell Distribution Width 12.6 % (11.0-16.0); White Blood Count 3.4 X10*3/uL (4.8-10.8)
[2025-02-22 14:40] LABS: Alanine Aminotransferase 45 U/L (0-31); Albumin Level 4.1 g/dL (3.5-5.0); Alkaline Phosphatase 50 U/L (39-117); Anion Gap 9 (12-20); Aspartate Amino Transferase 37 U/L (5-31); Bilirubin Direct 0.4 mg/dL (0.0-0.5); Bilirubin Total 1.4 mg/dL (0.0-1.0); Blood Urea Nitrogen 9 mg/dL (9-16); Calcium 9.3 mg/dL (8.4-10.2); Carbon Dioxide 29 mmol/L (22-29); Chloride 103 mmol/L (96-108); Estimated Glomerular Filt Rate > 60; Glucose Random 90 mg/dL (60-115); Potassium 3.8 mmol/L (3.3-5.1); Sodium 137 mmol/L (135-145); Total Protein 6.9 g/dL (6.5-8.0)
== END 2025-02-22 13:02 | disposition home or self-care (01) ==
LOC: HO.LAB 13:01
PROVIDERS: PCP Internal Medicine; Visit Provider Nurse Practitioner Family
DX: R74.01 Elevation of levels of liver transaminase levels (principal); K21.9 Gastro-esophageal reflux disease without esophagitis
CPT/HCPCS: 36415; 80053; 82248; 85027

== ENCOUNTER 2025-07-16 07:59 | Outpatient (REF) | payer BC, SELFPAY ==
[2025-07-16 12:11] LABS: Alanine Aminotransferase 25 U/L (0-31); Albumin Level 4.2 g/dL (3.5-5.0); Alkaline Phosphatase 54 U/L (39-117); Anion Gap 12 (12-20); Aspartate Amino Transferase 31 U/L (5-31); Blood Urea Nitrogen 7 mg/dL (9-16); Calcium 9.0 mg/dL (8.4-10.2); Carbon Dioxide 26 mmol/L (22-29); Chloride 106 mmol/L (96-108); Cholesterol 212 mg/dL (<200); Estimated Glomerular Filt Rate > 60; HDL Cholesterol 59 mg/dL (>40); Potassium 3.8 mmol/L (3.3-5.1); Sodium 140 mmol/L (135-145); Total Protein 6.9 g/dL (6.5-8.0); Triglycerides 97 mg/dL (<150)
== END 2025-07-16 08:00 | disposition home or self-care (01) ==
LOC: HO.HMGCLDS 07:59
PROVIDERS: PCP Internal Medicine; Visit Provider Nurse Practitioner Family
DX: Z00.01 Encounter for general adult medical examination with abnormal findings (principal); F41.9 Anxiety disorder, unspecified; F32.A Depression, unspecified; R73.01 Impaired fasting glucose; G43.009 Migraine without aura, not intractable, without status migrainosus; K51.50 Left sided colitis without complications; B00.1 Herpesviral vesicular dermatitis; I10 Essential (primary) hypertension
CPT/HCPCS: 36415; 80048; 80061; 80076; 82306; 96127

== ENCOUNTER 2025-07-16 08:12 | Outpatient (AMB) | payer BC, SELFPAY ==
--- NOTE | 2025-07-16 08:45 | A.OFFPC_ITS ---
Vital Signs 07/16/25 08:52 Height 5 ft Weight 118 lb BMI 23.0 BP 108/76 Blood Pressure Location Lt brachial Position Sitting Respiration 15 Pulse 54 Pulse Source Pulse Oximeter Temp 98.4 F Temp Source Oral Pulse Oximetry (%) 97 Oxygen Delivery Method Room Air Intake Visit Reasons: PE Intake Note: Pt is here today for her PE: Last mammogram 07/30/23, colonoscopy 02/08/25 Allergies codeine (CODEINE) Allergy (Unknown, Verified 07/16/25 09:16) RASH oxycodone (Percocet) Allergy (Unknown, Verified 07/16/25 09:16) rash Medication List - Last Reconciled 07/16/25 by Delmi Ernandez MD aripiprazole (Abilify) 2 mg PO DAILY atenolol 50 mg PO DAILY zpivdmxmhb-uoezasvylkszy-znka 50-325-40 mg 1 tab PO Q6H PRN citalopram 20 mg PO DAILY dicyclomine 10 mg PO BID PRN lorazepam 1 mg PO DAILY PRN mesalamine 2.4 grams (2 x 1.2 gram) PO DAILY ozanimod (Zeposia) 0.92 mg PO DAILY trazodone 100 mg PO BEDTIME PRN valacyclovir 2,000 mg (2 x 1 gram) PO Q12H PRN Tobacco use date assessed: 07/16/25 Dental Screening Dental Screen Date: 07/16/25 Did you have a dental visit in the last 12 months?: Yes Did you have a dental problem in the last 6 months where you did not have access to dental care?: No Was dental information given to patient?: Patient has dentist HPI PE HPI Details 54-year-old lady with history ulcerative colitis, anxiety /depression, impaired fasting glucose, hypertension and multiple sclerosis, here today for physical exam. She is overdue for her breast cancer screening , but is up to date with her colon cancer screen. overdue for her cervical cancer screen , previously done at [facility] , but declines further pap screening . She has been feeling well , with no new complaints at present . MS stable on Zeposia. 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 Plantar fasciitis, left Surgical History History of hernia surgery History of ankle surgery Hx of tonsillectomy Hx of appendectomy Hx of colonoscopy Family History Father Substance use disorder Sister Mental health disorder Social History Housing: House Alcohol intake: current Alcohol intake frequency: holidays/special occasions only Alcohol type: beer and wine Patient Tobacco Use Status: Former Tobacco user Years Smoked: 6 yrs e-Cigarette/Vaping Use: Never Used Second Hand Smoke Exposure: No Substance Use Type: Marijuana service: No Current occupational status: employed Cognitive needs: No Hearing needs: No Vision needs: No Questionnaire PHQ-9 Over the last 2 weeks, how often have you been bothered by any of the following problems? 1. Little interest or pleasure in doing things: not at all 2. Feeling down, depressed, or hopeless: not at all 3. Trouble falling or staying asleep, or sleeping too much: not at all 4. Feeling tired or having little energy: not at all 5. Poor appetite or overeating: not at all 6. Feeling bad about yourself - or that you are a failure or have let yourself or your family down: not at all 7. Trouble concentrating on things, such as reading the newspaper or watching television: not at all 8. Moving or speaking so slowly that other people could have noticed. Or the opposite - being so fidgety or restless that you have been moving around a lot more than usual: not at all 9. Thoughts that you would be better off or of hurting yourself in some way: not at all Total score: 0 Depression Screening Interpretation: Negative Depression Screening Done: Yes 29801 - PHQ-9 Billing: Yes Source: Developed by Drs. Rolf Latif, Shyann Mena, Lorenzo Burton and colleagues, with an educational miguel from [employer]. Thrive Questionnaire Date Thrive assessed: 07/16/25 I am a: Patient What is your living situation today?: I have a steady place to live Within the past 12 months, did the food you bought not last and you didn't have the money to get more?: Never true Within the past 12 months, did you worry whether your food would run out before you got money to buy more?: Never true Do you have trouble paying for medicines?: No Do you have trouble getting transportation to medical appointments?: No Do you have trouble paying your heating and electricity bill?: No Do you have trouble taking care of your child, family member or friend?: No Do you have trouble with day-to-day activities such as bathing, preparing meals, shopping, managing finances, etc.?: No Are you currently unemployed and looking for a job?: No Are you interested in more education?: I choose not to answer this question Please select the resources that you would like help with: None Currently or been in a relationship where the following occur: No concerns reported THRIVE Score: 0 AUDIT C Alcohol Use Questionnaire (AUDIT-C) 1. How often do you have a drink containing alcohol?: 2-4 times a month 2. How many drinks containing alcohol do you have on a typical day when you are drinking?: 1 or 2 3. How often do you have six or more drinks on one occasion?: Less than monthly Total Score: 3 Score Reviewed/Action Taken: Yes CLAYTON-7 AMB Questionnaire CLAYTON-7 Date CLAYTON - 7 assessed: 07/16/25 Feeling nervous, anxious, or on edge: 0 = Not at all Not being able to stop or control worryin = Not at all Worrying too much about different things: 0 = Not at all Trouble relaxin = Not at all Being so restless that it is hard to sit still: 0 = Not at all Becoming easily annoyed or irritable: 0 = Not at all Feeling afraid as if something awful might happen: 0 = Not at all Total CLAYTON-7 score (0-4 normal; 5-9 mild; 10-14 moderate; 15-21 severe): 0 Source: Developed by Drs. Rolf Latif, Shyann Mena, Lorenzo Burton and colleagues, with an educational miguel from [employer] CLAYTON-7 Assessment Billing CLAYTON-7 Assessment Tool: CLAYTON-7 Assessment 20775 Review of Systems Const Reports no additional complaints Eyes Details: [facility] Reports blurry vision (With reading, overdue for eye exam) ENT Reports Normal hearing present and Denies dysphagia Card Denies chest pain, Denies chest pain with activity, Denies rapid heart rate, Denies irregular heart rhythm and Denies lightheadedness Resp Reports no additional complaints GI Denies melena, Denies dysphagia, Denies excessive flatus and Denies heartburn Reports no additional complaints Musc Denies arthralgias and Reports stiffness Skin/Breast Denies breast pain, Denies breast mass, Denies lesions and Denies rash Neuro Reports Normal hearing present, Denies Abnormal speech present and Denies Sensory deficit (Neuro) Psych Reports no additional complaints Endo Reports no additional complaints Virgil/Lymph Denies easy bleeding and Denies easy bruising Aller/Immun Reports no additional complaints Physical exam (Primary Care) Vital Signs: Last Vital Signs Temp 98.4 F 07/16/25 08:52 Pulse 54 07/16/25 08:52 Resp 15 07/16/25 08:52 BP 108/76 07/16/25 08:52 Pulse Ox 97 07/16/25 08:52 Oxygen Delivery Method Room Air 07/16/25 08:52 BMI result Body Mass Index 23.0 Tobacco/Smoking Status: Tobacco use Status Tobacco use date assessed 07/16/25 07/16/25 08:49 Patient Tobacco Use Status Former Tobacco user 07/16/25 08:49 e-Cigarette/Vaping Use Never Used 07/16/25 08:49 PHQ-9: PHQ-9 Score PHQ-9: Total score 0 07/16/25 09:32 Depression Screening Interpretation: Negative Thrive Assessment: Date of Thrive Assessment Date Thrive assessed 07/16/25 07/16/25 08:49 Currently or been in a relationship where the following occur: No concerns reported Const General: cooperative, comfortable, no acute distress and alert Nutritional Appearance: average body habitus Orientation/consciousness: patient oriented x3 HENMT Ears: hearing grossly normal bilaterally, TM's normal bilaterally and EAC's normal General nose exam: Normal external nose present and No nasal discharge present Face and sinus: Yes face symmetric Mouth: Normal oral and palatal mucosa present, tongue normal, oropharynx normal and moist mucous membranes Eyes General: appearance normal, both eyes and all related structures Neck Neck: Yes normal visual inspection, Yes full ROM, Yes no lymphadenopathy and Yes supple Thyroid: Thyroid normal Chest Breast/axilla inspection: normal inspection of the breasts Breast/axilla palpation: normal palpation of the breasts Resp Effort & Inspection: normal respiratory effort Auscultation: clear to auscultation bilaterally Cardio Rate: regular rate Rhythm: regular rhythm Heart sounds: S1 normal heart sound present and S2 normal heart sound present GI Palpation (GI): Soft to palpation, Tenderness to palpation present (GI) (lower abdomen) in the LLQ and in the LUQ, no guarding and no masses General: Yes no CVA tenderness and Yes deferred Back/Spine/Pelvis Back: no CVA tenderness and No back tenderness Skin General skin exam: no rashes or lesions noted Neuro General: patient oriented x3, gait normal, tone normal, Normal light touch and pain sensation, no focal motor deficits and CN's II-XI intact bilaterally Cranial nerves: Yes Normal hearing present Cognition (Neuro): normal cognition Speech: No Abnormal speech present Gait exam (Neuro): Normal gait present Sensory Exam: No Sensory deficit (Neuro) Extrem General: Yes full ROM, Yes no joint enlargement, Yes no pedal edema, Yes no calf tenderness and Yes normal gait Psych Appearance: grossly normal and well kempt Mental Status: mental status grossly normal Speech and movement: Normal speech and movement present Affect: normal affect Results Reviewed Results Reviewed: Laboratory Tests 02/22/25 14:06 Hgb 12.3 Hct 36.3 L Plt Count 281 Name: Binta Godoy Age/Sex: 54/F : 1970 Unit#: [id number] Attend Dr: Barby Ross [facility]- Re07/16/25 Status: DEP [facility]F [facility] Disch: SPEC : [id number] CASSIUS: 07/16/25 STATUS: COMP REQ : [id number] RECD: 07/16/25-[address]: Delmi Ernandez MD COMP: 07/16/256 ENTERED: 07/16/25-[address]: Barby Ross [employer]- BC ORDERED: Liver Panel, BMP, Lipid Panel, Vitamin D 25-OH Test Result Flag Reference Sodium 140 135-145 mmol/L Potassium 3.8 3.3-5.1 mmol/L CL 106 96-108 mmol/L CO2 26 22-29 mmol/L Gap 12 12-20 BUN 7 L 9-16 mg/dL Creat 0.91 0.5-1.4 mg/dL eGFR > 60 Chronic Kidney Disease: Estimated GFR < 60 mL/min/1.73m2 Severe Kidney Disease: Estimated GFR < 15 mL/min/1.73m2 Glucose, Random 115 60-115 mg/dL CA 9.0 8.4-10.2 mg/dL Total Bili 1.1 H 0.0-1.0 mg/dL Direct Bili 0.3 0.0-0.5 mg/dL AST (GOT) 31 5-31 U/L ALT (GPT) 25 0-31 U/L Protein, Total 6.9 6.5-8.0 g/dL Alb 4.2 3.5-5.0 g/dL Triglyceride 97 <150 mg/dL Desirable Triglyceride: less than 150 mg/dL Borderline High Triglyceride 150-199 mg/dL High Triglyceride: 200-499 mg/dL Very High Triglyceride: greater than or equal to 5OO mg/dL Cholesterol 212 H <200 mg/dL Desirable Cholesterol: less than 200 mg/dL Borderline High Cholesterol: 200-239 mg/dL High Cholesterol: greater than 239 mg/dL LDL Calculated 134 H <100 mg/dL Desirable LDL: less than 100 mg/dL Near Optimal/Above Optimal LDL: 110-129 mg/dL Borderline High LDL: 130-159 mg/dL High LDL: 160-189 mg/dL Very High LDL: greater than or equal to 190 mg/dL HDL 59 >40 mg/dL Desirable HDL: greater than 40 mg/dL Note: This HDL assay may give artificially low results in patients with liver disease. Alk Phos 54 39-117 U/L Vitamin D 25-OH 27.4 L >30 ng/mL Health Based Reference Values* < 20 ng/mL Deficient 20-30 ng/mL Insufficient > 30 ng/mL Sufficient Coding Level of Care Code Est Pt Prev Care 40-64y(94573) Diagnoses Annual visit for general adult medical examination with abnormal findings Z0 0.01 Impaired fasting glucose R73.01 Migraine without aura and without status migrainosus, not intractable G43.009 Intractability: not intractable Migraine type: migraine (< 15 days per month) without aura Status migrainosus presence: without status migrainosus Left sided ulcerative colitis without complication K51.50 Digestive disease complication type: without complication Recurrent cold sores B00.1 Anxiety and depression F41.9; F32.A Essential hypertension I10 Additional Codes CLAYTON-7 Assessment Billing - CLAYTON-7 Assessment Tool: CLAYTON-7 Assessment 34313 ([id number]) PHQ-9 - 65343 - PHQ-9 Billing: Yes ([id number]) Assessment & Plan Assessment & Plan (1) Annual visit for general adult medical examination with abnormal findings: Code(s): Z00.01 - Encounter for general adult medical examination with abnormal findings Plan: Fasting lab results reviewed with patient.. Recommended dental visit every 6 months and regular eye exams, at least every 2 years. Take adequate calcium in diet and vitamin-D 3 at 2000 IU per cap once a day, in addition to weight- bearing exercises to help maintain good muscle tone and weight control. Instructed to do self-breast exam, and recommended to get yearly mammogram, patient states will schedule an appointment. Does not want to get any Pap smear pelvic exam done. Colonoscopy up-to-date, repeat again in 2028. Declines flu vaccine COVID booster other recommended vaccines (2) Impaired fasting glucose: Code(s): R73.01 - Impaired fasting glucose Category: Medical Plan: Your previous fasting blood sugars were elevated above 100 mg/dL. Impaired glucose metabolism increases the risk for developing diabetes mellitus type 2, as well as heart attack and stroke later on. Lifestyle changes that promotes weight loss, healthy eating habits, and regular exercise are important, and can prevent the progression to diabetes (3) Migraine headache: Code(s): G43.909 - Migraine, unspecified, not intractable, without status migrainosus Category: Medical Qualifiers: Intractability: not intractable Migraine type: migraine (< 15 days per month) without aura Status migrainosus presence: without status migrainosus Qualified Code(s): G43.009 - Migraine without aura, not intractable, without status migrainosus Plan: Takes hezzbdbieo-hcymwtdxetpcl-uwckbrgg tablets as needed for acute migraine episodes (4) Left sided ulcerative colitis: Code(s): K51.50 - Left sided colitis without complications Category: Medical Qualifiers: Digestive disease complication type: without complication Qualified Code(s): K51.50 - Left sided colitis without complications Plan: Followed by [facility], currently on mesalamine (5) Recurrent cold sores: Code(s): B00.1 - Herpesviral vesicular dermatitis Category: Medical Plan: HasValacyclovir to take as needed for acute recurences (6) Anxiety and depression: Comment: Followed by psychiatry Code(s): F41.9 - Anxiety disorder, unspecified; F32.A - Depression, unspecified Category: Medical Plan: Currently followed by Psychiatry and therapist, on Abilify, citalopram and trazodone takes lorazepam as needed for acute anxiety attacks (7) Essential hypertension: Code(s): I10 - Essential (primary) hypertension Category: Medical Plan: Blood pressure at goal of less than 130/80. Continue with atenolol 50 mg daily Reinforced importance of following a low sodium diet, getting regular exercise, and lowering stress levels. Orders: Orders Vitamin D 25-OH Total 07/16/25 B00.1 - Herpesviral vesicular dermatitis, G43.009 - Migraine without aura, not intractable, without status migrainosus, K51.50 - Left sided colitis without complications, R73.01 - Impaired fasting glucose, Z13.220 - Encounter for screening for lipoid disorders, Z78.0 - Asymptomatic menopausal state Lipid Panel 07/16/25 B00.1 - Herpesviral vesicular dermatitis, G43.009 - Migraine without aura, not intractable, without status migrainosus, K51.50 - Left sided colitis without complications, R73.01 - Impaired fasting glucose, Z13.220 - Encounter for screening for lipoid disorders, Z78.0 - Asymptomatic menopausal state Basic Metabolic Panel 07/16/25 B00.1 - Herpesviral vesicular dermatitis, G43.009 - Migraine without aura, not intractable, without status migrainosus, K51.50 - Left sided colitis without complications, R73.01 - Impaired fasting glucose, Z13.220 - Encounter for screening for lipoid disorders, Z78.0 - Asymptomatic menopausal state Medications: Refilled fwflmjprhi-uzrjqgbruroba-lige 50-325-40 mg 1 tab PO Q6H PRN 20 tabs 0RF pain valacyclovir 2,000 mg (2 x 1 gram) PO Q12H PRN 4 tabs 5RF recurrent cold sores
[2025-07-16 08:52] VITALS: BP 108/76; PULSE 54; RESP 15; TEMP 36.9; O2SAT 97; BMI 23.0
--- OUTSIDE RECORDS SUMMARY | 2025-07-16 09:28 | XMS_ITS | Patient Health Record ---
Author Organization [facility] re[facility] Universal Address [address] [facility] [place] [address] Care Team Providers Care Residence Hall Director Name Role Phone Awais ALVAREZ, Delmi Acosta Primary Care Provider Un available Dione Ramírez Unavailable [phone] Allergies Allergen (clinical drug ingredient) Drug/Non Drug Allergy documented on EMR Reaction Allergy Type Onset Date Status acetaminophen / oxycodone Percocet rash Drug Allergy Active codeine Codeine rash Drug Allergy Active Reason For Referral No Information Medications Medication SIG (Take, Route, Frequency, Duration) Notes Start Date End Date Status Citalopram & Diet Manage Prod 40 mg as directed Orally Acti ve Flexeril 5 MG 1 tablet Orally Once a day; Duration: 30 day(s) Not-Taking LORazepam 0.5 MG 1 tablet at bedtime as needed Orally Once a day Not-Taking HYDROcodone-Acetaminoph en 5-325 MG 1 tablet as needed Orally every 4-6 hrs; Duration: as needed 11/23/2012 Not-Taking Work Note . . . .; Duration: . 12/11/2012 Not-Taking Vicodin 5-500 MG 1 tablet as needed Orally every 6 hrs; Duration: as needed 12/11/2012 Not-Taking IBU-200 takes 3 at a time twice a day Active Pramipexole Dihydrochloride Active Atenolol 50 MG 1 tablet Orally Once a day Active Vicodin 5-300 MG 1 tablet as needed Orally every 6 hrs; Duration: as needed 08/04/2016 Active Problems No Known Problems Plan Of Treatment Pending Test Test Name Order Date *Liver Function Test (LFT) 11/23/2012 [id number]-Seurxadm Plate 12/11/2012 [id number]-Fyspabdt Plate 07/03/2015 00330-Ntmqbbal Plate 08/03/2016 95015-Vnizqufe Plate 11/23/2012 94887- Debride <25 sq cm 12/11/2012 Insurance Providers Payer Name Payer Address Payer Phone Subscriber Number Group Number Insured Name Patient Relationship to Insured Coverage Start Date Coverage End Date [facility] [address] [place] [address] [id number] Binta Godoy Self - patient is the insured Medical (General) History Medical History History ICD Code anxiety headaches/migraines high blood pressure Broken bones Depression Hernia Surgical History Surgery Date(Month/Year) hernia tonsillectomy appendectomy ankle surgery Left 2 surgeries 2015 neck fusion
== END 2025-07-16 11:57 | disposition home or self-care (01) ==
PROVIDERS: PCP Internal Medicine; Visit Provider Internal Medicine
DX: Z00.01 Encounter for general adult medical examination with abnormal findings (principal); R73.01 Impaired fasting glucose; G43.009 Migraine without aura, not intractable, without status migrainosus; K51.50 Left sided colitis without complications; B00.1 Herpesviral vesicular dermatitis; F41.9 Anxiety disorder, unspecified; F32.A Depression, unspecified; I10 Essential (primary) hypertension